=== PATIENT | male | born 1965 | race Caucasian/White ===

== ENCOUNTER 2016-10-01 13:59 | Inpatient (IN) | payer SELFPAY ==
[~2016-10-01] VITALS: Ht 177.8 cm; Wt 88.5 kg
[2016-10-01] MEDS ORDERED: LORazepam 2 MG/ML VIAL ONE (14:05)
[2016-10-01] MEDS ORDERED: SODIUM CHLOR 0.9% 1000 ML INJ 1,000 ML IV ONE (14:05)
[2016-10-01 14:06] VITALS: BP 138/117; PULSE 140; RESP 17; TEMP 97.6; O2SAT 94
[2016-10-01 14:09] VITALS: O2SAT 94
--- NOTE | 2016-10-01 14:14 | PD ---
HPI Chief Complaint: Seizure Time Seen by Provider: 14:05 Travel History International Travel<30 days: No Contact w/Intl Traveler<30days: No Traveled to known affect area: No History of Present Illness HPI 51-year-old male with history of previous stroke and a previous seizure in the past, presents to the ER today brought in by EMS after he had a witnessed seizure at work today, he fell, hit the back of his head, and was fairly agitated and refusing to be brought by EMS to the ER. However, he is quite disoriented and does not would know where he is, first thought he was in [place] , then thought he was in [place], thinks that it is the year 1999. Patient does not know what happened. Modifying Factors: None Associated Signs & Symptoms: Seizure, head injury, altered mental status Risk Factors: History of seizure and stroke PFSH Social History Tobacco Use: No (unknown) Allergies-Medications (Allergen,Severity, Reaction): Coded Allergies: No Known Allergies (Unverified , 10/01/16) Reported Meds & Prescriptions Reported Meds & Active Scripts Active No Active Prescriptions or Reported Medications Review of Systems ROS Limitations: Altered Mental Status Physical Exam Narrative GENERAL: Well-developed anxious appearing middle age white male patient who is awake, alert, but disoriented. SKIN: Focused skin assessment warm/dry. HEAD: Atraumatic. Normocephalic. EYES: Pupils equal and round. No scleral icterus. No injection or drainage. ENT: No nasal bleeding or discharge. Mucous membranes pink and moist. NECK: Trachea midline. No JVD. CARDIOVASCULAR: Regular rate and rhythm. No murmur appreciated. RESPIRATORY: No accessory muscle use. Clear to auscultation. Breath sounds equal bilaterally. GASTROINTESTINAL: Abdomen soft, non-tender, nondistended. Hepatic and splenic margins not palpable. MUSCULOSKELETAL: No obvious deformities. No clubbing. No cyanosis. No edema. NEUROLOGICAL: Awake and alert. No obvious cranial nerve deficits. Motor grossly within normal limits. Normal speech. PSYCHIATRIC: Agitated mood and affect; insight and judgment poor. Data Data Last Documented VS Vital Signs Date Time Temp Pulse Resp B/P Pulse Ox O2 Delivery O2 Flow Rate FiO2 10/01/16 15:22 125 16 156/90 97 Nasal Cannula 4 10/01/16 14:06 97.6 Orders Lorazepam Inj (Ativan Inj) (10/01/16 14:05) Complete Blood Count With Diff (10/01/16 14:05) Alcohol (Ethanol) (10/01/16 14:05) Drug Screen, Random Urine (10/01/16 14:05) Electrocardiogram (10/01/16 ) Ct Brain W/O Iv Contrast(Rout) (10/01/16 ) Blood Glucose (10/01/16 14:05) Ecg Monitoring (10/01/16 14:05) Iv Access Insert/Monitor (10/01/16 14:05) Oximetry (10/01/16 14:05) Comprehensive Metabolic Panel (10/01/16 14:05) Sodium Chlor 0.9% 1000 Ml Inj (Ns 1000 M (10/01/16 14:05) Sodium Chloride 0.9% Flush (Ns Flush) (10/01/16 14:15) Lorazepam Inj (Ativan Inj) (10/01/16 14:15) Lorazepam Inj (Ativan Inj) (10/01/16 14:45) Haloperidol Inj (Haldol Inj) (10/01/16 16:30) Labs Laboratory Tests Test 10/01/16 14:15 White Blood Count 8.7 TH/MM3 Red Blood Count 4.66 MIL/MM3 Hemoglobin 15.1 GM/DL Hematocrit 44.0 % Mean Corpuscular Volume 94.4 FL Mean Corpuscular Hemoglobin 32.4 PG Mean Corpuscular Hemoglobin 34.3 % Concent Red Cell Distribution Width 16.7 % Platelet Count 112 TH/MM3 Mean Platelet Volume 9.2 FL Neutrophils (%) (Auto) 58.1 % Lymphocytes (%) (Auto) 26.4 % Monocytes (%) (Auto) 14.2 % Eosinophils (%) (Auto) 0.3 % Basophils (%) (Auto) 1.0 % Neutrophils # (Auto) 5.1 TH/MM3 Lymphocytes # (Auto) 2.3 TH/MM3 Monocytes # (Auto) 1.2 TH/MM3 Eosinophils # (Auto) 0.0 TH/MM3 Basophils # (Auto) 0.1 TH/MM3 CBC Comment DIFF FINAL Differential Comment Sodium Level 132 MEQ/L Potassium Level 3.6 MEQ/L Chloride Level 97 MEQ/L Carbon Dioxide Level 20.6 MEQ/L Anion Gap 14 MEQ/L Blood Urea Nitrogen 3 MG/DL Creatinine 0.65 MG/DL Estimat Glomerular Filtration 131 ML/MIN Rate Random Glucose 126 MG/DL Calcium Level 8.5 MG/DL Total Bilirubin 0.8 MG/DL Aspartate Amino Transf 181 U/L (AST/SGOT) Alanine Aminotransferase 120 U/L (ALT/SGPT) Alkaline Phosphatase 171 U/L Total Protein 8.1 GM/DL Albumin 2.8 GM/DL Ethyl Alcohol Level 27 MG/DL MDM Medical Decision Making Medical Screen Exam Complete: Yes Emergency Medical Condition: Yes Medical Record Reviewed: Yes Interpretation(s) Laboratory Tests Test 10/01/16 14:15 Platelet Count 112 TH/MM3 (150-450) Monocytes (%) (Auto) 14.2 % (0.0-8.0) Monocytes # (Auto) 1.2 TH/MM3 (0-0.9) Sodium Level 132 MEQ/L (136-145) Chloride Level 97 MEQ/L (98-107) Carbon Dioxide Level 20.6 MEQ/L (21.0-32.0) Blood Urea Nitrogen 3 MG/DL (7-18) Random Glucose 126 MG/DL (74-106) Aspartate Amino Transf 181 U/L (15-37) (AST/SGOT) Alanine Aminotransferase 120 U/L (12-78) (ALT/SGPT) Alkaline Phosphatase 171 U/L (45-117) Albumin 2.8 GM/DL (3.4-5.0) Ethyl Alcohol Level 27 MG/DL (0-5) Differential Diagnosis Seizure, altered mental status, head injuryICH versus concussion versus post ictal versus metabolic issues Narrative Course He appeared quite anxious and tremulous in the ER and due to unknown history of alcohol use and disorientation, there is also concerned of DVTs. Ativan was given in the ER. However, patient is still quite awake and fairly agitated and additional Ativan had to be given because he is attempting to leave. He is too disoriented to make his own decision right now. He tries to get up in the ER and almost falls. I had asked security to watch him. At this point, he is Brewster acted because he is disoriented and does not seem to understand was going on. CAT scan techs have come to try to pick him up to get a CAT scan 3 times in all 3 times he had refused stating that he was going to leave. However, when asked regarding the CAT scan and the CAT scan techs coming to take him to go CAT scan, he states that he does not remember. At this point, my plan would be to admit him for altered mental status, head injury. Case is discussed with Dr. Rosenbaum for admission. There is also significant tachycardia and there is concern for possible DTs. Aggregate critical care time was 30 minutes. Time to perform other separately billable procedures was not included in the critical care time. My time did not include minutes spent treating any other patients simultaneously or on activities that did not directly contribute to the patient's treatment. The services I provided to this patient were to treat and/or prevent clinically significant deterioration that could result in: DTs, status epilepticus, intracranial bleed, I provided critical care services requiring my management, as noted below: Chart data review, documentation time, medication orders and management, vital sign assessments/reviewing monitor data, ordering and reviewing lab tests, ordering and interpreting/reviewing x-rays and diagnostic studies, care of the patient and discussion of the patient with the admitting physicians. Diagnosis Primary Impression: Seizure Additional Impressions: Altered mental status Head injury Admitting Information Admitting Physician Requests: Admit Scripts No Active Prescriptions or Reported Meds Sami Hernandez MD Oct 01, 2016 14:14
[2016-10-01] MEDS ORDERED: LORazepam 2 MG/ML VIAL IVS ONE (14:15)
[2016-10-01] MEDS ORDERED: SODIUM CHLORIDE 0.9% FLUSH 10 ML FLUSH IVF PRN (14:15)
[2016-10-01 14:27] LABS: AUTOMATED NEUTROPHIL # 5.1 TH/MM3 (1.8-7.7); BASOPHIL # 0.1 TH/MM3 (0-0.2); EOSINOPHIL % 0.3 % (0.0-4.0); HEMO FLAGS DIFF FINAL; LYMPH % 26.4 % (9.0-44.0); LYMPHOCYTE # 2.3 TH/MM3 (1.0-4.8); MEAN CELL VOLUME 94.4 FL (80.0-100.0); MEAN CORPUSCULAR HEMOGLOBIN 32.4 PG (27.0-34.0); MEAN CORPUSCULAR HGB CONC 34.3 % (32.0-36.0); MONO % 14.2 % (0.0-8.0); NEUT % 58.1 % (16.0-70.0); PLATELET COUNT 112 TH/MM3 (150-450); RED BLOOD COUNT 4.66 MIL/MM3 (4.50-5.90); RED CELL DISTRIBUTION WIDTH 16.7 % (11.6-17.2); WHITE BLOOD COUNT 8.7 TH/MM3 (4.0-11.0)
[2016-10-01] MEDS ORDERED: LORazepam 2 MG/ML VIAL IV PUSH ONE (14:45)
[2016-10-01 14:51] LABS: ALT (GPT) 120 U/L (12-78)
[2016-10-01 14:54] LABS: ALKALINE PHOSPHATASE 171 U/L (45-117); TOTAL BILIRUBIN ADULT 0.8 MG/DL (0.2-1.0)
[2016-10-01 15:04] LABS: ALCOHOL 27 MG/DL (0-5); ANION GAP 14 MEQ/L (5-15); AST (GOT) 181 U/L (15-37); BICARBONATE 20.6 MEQ/L (21.0-32.0); BLOOD UREA NITROGEN 3 MG/DL (7-18); CHLORIDE 97 MEQ/L (98-107); GLOMERULAR FILTRATION RATE 131 ML/MIN (>89); POTASSIUM 3.6 MEQ/L (3.5-5.1); SODIUM (NA) 132 MEQ/L (136-145)
[2016-10-01 15:22] VITALS: BP 156/90; PULSE 125; RESP 16; O2SAT 97
[2016-10-01] MEDS ORDERED: HALOPERIDOL LACTATE 5 MG/ML AMP IM ONE (16:30)
--- NOTE | 2016-10-01 17:30 | RADRPT ---
EXAM DATE/TIME: 10/01/2016 17:04 [facility] COMPARISON: No previous studies available for comparison. INDICATIONS : Altered mental status. Laceration to back of head. RADIATION DOSE: 37.90 CTDIvol (mGy) MEDICAL HISTORY : Seizures. SURGICAL HISTORY : None. ENCOUNTER: Initial ACUITY: 1 day PAIN SCALE: LOCATION: Bilateral cranial TECHNIQUE: Multiple contiguous axial images were obtained of the head. Using automated exposure control and adj ustment of the mA and/or kV according to patient size, radiation dose was kept as low as reasonably a chievable to obtain optimal diagnostic quality images. DICOM format image data is available electro nically for review and comparison. FINDINGS: CEREBRUM: The ventricles are normal for age. No evidence of midline shift, mass lesion, hemorrhage or acute in farction. No extra-axial fluid collections are seen. POSTERIOR FOSSA: The cerebellum and brainstem are intact. The 4th ventricle is midline. The cerebellopontine angle i s unremarkable. EXTRACRANIAL: The visualized portion of the orbits is intact. Soft tissue hematoma over the left posterior perivert ex region. SKULL: The calvaria is intact. No evidence of skull fracture. CONCLUSION: 1. Left posterior perivertex cephalhematoma. 2. Otherwise negative with no acute intracranial process from trauma or fracture. Tom Torres MD on October 01, 2016 at 17:27 Board Certified Radiologist. This report was verified electronically.
[2016-10-01] MEDS ORDERED: LORazepam 2 MG TAB PO PRN (18:30)
[2016-10-01] MEDS ORDERED: LORazepam 1 MG TAB PO PRN (18:30)
[2016-10-01] MEDS ORDERED: FLUMAZENIL 0.5 MG/5 ML VIAL IV PUSH PRN (18:30)
[2016-10-01] MEDS ORDERED: SODIUM CHLORIDE 0.9% FLUSH 10 ML FLUSH IV FLUSH PRN ×2 (18:30→20:15)
[2016-10-01] MEDS: THIAMINE INJ 500 MG in SODIUM CHLOR 0.9% 250 ML INJ 250 ML IV SCH (19:28)
[2016-10-01 19:34] VITALS: BP 147/87; PULSE 107; RESP 16; O2SAT 96
--- NOTE | 2016-10-01 20:10 | HHI.HP ---
HPI Service [facility] Primary Care Physician No Primary Care Physician Admission Diagnosis seizure/altered mental status/possible DTs/Brewster act Diagnoses: (1) Encephalopathy Diagnosis: Principal (2) Seizure Diagnosis: Principal (3) Alcohol withdrawal Diagnosis: Principal (4) Tremor of both hands Diagnosis: Principal (5) Thrombocytopenia Diagnosis: Principal Travel History International Travel<30 Days: No Contact w/Intl Traveler <30 Da: No Traveled to Known Affected Are: No History of Present Illness This is a 51-year-old male with a PMH of Chronic Upper Extremity Tremors, Alcohol Abuse and Tobacco Abuse who was brought to the ER by EMS after apparent witnessed episode of seizure activity. Per initial report, pt had seizure lasting approx 1-2 min witnessed by friends, +head trauma. On arrival to ER, pt noted to be confused/agitated, oriented to person only and tachycardic w/ HR 140's, thought by ER doc to have Alcohol Withdrawal and started on CIWA protocol. While in ER, pt w/ improved mental status however oriented only to person/place. Stated he wanted to LEAVE AMA, however ER physician felt this was unsafe discharge as pt confused at that time and placed under Brewster Act. On my exam, pt tells me he was at a restaurant w/ friends, went outside to smoke a cigarette, felt lightheaded and turned around to walk back into restaurant when he suddenly "passed out". No h/o similar symptoms per pt. States he drinks "a few beers a day". Reports chronic upper extremity tremors from previous cervical surgery, takes Flexeril w/ minimal relief. No h/o seizure disorder. On arrival, BP 138/117, HR 140, O2 sat 94% on RA, Afebrile. [place] BP 147/87, HR 107. CBC unremarkable except for platelets 112, no previous labs for comparison. Chemistry essentially unremarkable except for mild dehydration. LFTs mildly elevated, no previous labs for comparison. Alcohol 27. CT Head with left posterior perivertex cephalo-hematoma, no acute intracranial process. Review of Systems Except as stated in HPI: all other systems reviewed are Neg ROS: 14 point review of systems otherwise negative. Past Family Social History Past Medical History PMH: Chronic Upper Extremity Tremors, Alcohol Abuse and Tobacco Abuse Past Surgical History PAST SURGICAL HISTORY: Unknown Allergies: Coded Allergies: No Known Allergies (Unverified , 10/01/16) Family History PAST FAMILY HISTORY: Reviewed. No h/o DM or CAD Social History PAST SOCIAL HISTORY: Drinks daily "few beers". Smokes 1ppd. Negative for drugs. Physical Exam Vital Signs Vital Signs Date Time Temp Pulse Resp B/P Pulse Ox O2 Delivery O2 Flow Rate FiO2 10/01/16 19:34 107 16 147/87 96 Room Air 10/01/16 15:22 125 16 156/90 97 Nasal Cannula 4 10/01/16 14:09 94 Room Air 10/01/16 14:09 17 94 Room Air 10/01/16 14:06 97.6 140 17 138/117 94 Physical Exam PE: GENERAL: Middle-aged white male in no acute distress. Baseline tremor bilateral upper extremities, chronic. HEENT: PERRLA, EOMI. No scleral icterus or conjunctival pallor. No lid lag or facial droop. CARDIOVASCULAR: Regular rate and rhythm. No obvious murmurs to auscultation. No chest tenderness to palpation. RESPIRATORY: No obvious rhonchi or wheezing. Clear to auscultation. Breath sounds equal bilaterally. GASTROINTESTINAL: Abdomen soft, non-tender, nondistended. BS normal. MUSCULOSKELETAL: Extremities without clubbing, cyanosis, or edema. No obvious deformities. NEUROLOGICAL: Awake, alert and oriented x4. No focal neurologic deficits. Moving both upper and lower extremities spontaneously. Laboratory Laboratory Tests Test 10/01/16 14:15 White Blood Count 8.7 Red Blood Count 4.66 Hemoglobin 15.1 Hematocrit 44.0 Mean Corpuscular Volume 94.4 Mean Corpuscular Hemoglobin 32.4 Mean Corpuscular Hemoglobin 34.3 Concent Red Cell Distribution Width 16.7 Platelet Count 112 Mean Platelet Volume 9.2 Neutrophils (%) (Auto) 58.1 Lymphocytes (%) (Auto) 26.4 Monocytes (%) (Auto) 14.2 Eosinophils (%) (Auto) 0.3 Basophils (%) (Auto) 1.0 Neutrophils # (Auto) 5.1 Lymphocytes # (Auto) 2.3 Monocytes # (Auto) 1.2 Eosinophils # (Auto) 0.0 Basophils # (Auto) 0.1 CBC Comment DIFF FINAL Differential Comment Sodium Level 132 Potassium Level 3.6 Chloride Level 97 Carbon Dioxide Level 20.6 Anion Gap 14 Blood Urea Nitrogen 3 Creatinine 0.65 Estimat Glomerular Filtration 131 Rate Random Glucose 126 Calcium Level 8.5 Total Bilirubin 0.8 Aspartate Amino Transf 181 (AST/SGOT) Alanine Aminotransferase 120 (ALT/SGPT) Alkaline Phosphatase 171 Total Protein 8.1 Albumin 2.8 Ethyl Alcohol Level 27 Result Diagram: 10/01/16 1415 10/01/16 1415 Assessment and Plan Problem List: (1) Encephalopathy ICD Code: G93.40 Status: Acute (2) Seizure ICD Code: R56.9 Status: Acute (3) Alcohol withdrawal ICD Code: F10.239 Status: Acute (4) Tremor of both hands ICD Code: R25.1 Status: Acute (5) Thrombocytopenia ICD Code: D69.6 Status: Acute Assessment and Plan A/P: 1. Encephalopathy: Likely secondary to seizure w/ post-ictal period and confusion, initially oriented to person only. CT Head w/ posterior hematoma, no acute intracranial findings, images reviewed by me. Placed under Brewster Act by ER physician as pt confused and wanting to Leave AMA. Currently oriented to person, place and time. 2. Seizure: per EMS, witnessed seizure by friends, pt denies h/o seizure. CT Head as above. Alcohol 27. U/a and Urine Drug Screen pending. Consult Neurology as needed. 3. Alcohol Withdrawal: Drinks daily, reports "few beers", +tachycardia, Alcohol 27, continue w/ CIWA, Seizure Precautions, Thiamine/Folate/MVT replacement. 4. Tremor: Bilateral Upper Extremities. Chronic, at baseline. 5. Thrombocytopenia: Platelets 112, no previous labs for comparison, no active bleeding. Will monitor, repeat labs in am. 6. Tobacco Abuse: Pt counselled. NicoDerm prn if needed. 7. DVT Prophylaxis: SCD/Teds. 8. Social work for d/c planning as needed. 9. Case discussed w/ ER physician at length. Physician Certification 2 Midnight Certification Type: Admission for Inpatient Services Order for Inpatient Services The services are ordered in accordance with Medicare regulations or non- Medicare payer requirements, as applicable. In the case of services not specified as inpatient-only, they are appropriately provided as inpatient services in accordance with the 2-midnight benchmark. Estimated LOS (days): 2 days is the estimated time the patient will need to remain in the hospital, assuming treatment plan goals are met and no additional complications. Post-Hospital Plan: Not yet determined Mckayla Perez MD Oct 01, 2016 20:10
[2016-10-01] MEDS ORDERED: SENNOSIDES 8.6 MG TAB PO PRN (20:15)
[2016-10-01] MEDS ORDERED: LACTULOSE SYRUP 20 GM/30 ML CUP PO PRN (20:15)
[2016-10-01] MEDS ORDERED: ONDANSETRON HCL 4 MG/2 ML VIAL IVP PRN (20:15)
[2016-10-01] MEDS ORDERED: ACETAMINOPHEN 325 MG TAB PO PRN (20:15)
[2016-10-01] MEDS ORDERED: MAGNESIUM HYDROXIDE SUSP 30 ML CUP PO PRN (20:15)
[2016-10-01] MEDS ORDERED: BISACODYL 10 MG SUPP RECTAL PRN (20:15)
[2016-10-01] MEDS: SODIUM CHLORIDE 0.9% FLUSH 10 ML FLUSH IV FLUSH SCH (21:00)
[2016-10-01] MEDS: DOCUSATE SODIUM 50 MG/SENNA 8.6 MG TAB PO SCH (21:00)
[2016-10-01] MEDS ORDERED: SODIUM CHLORIDE 0.9% FLUSH 10 ML FLUSH IV FLUSH SCH (21:00)
[2016-10-01 22:00] VITALS: BP 157/95; PULSE 145; RESP 22; TEMP 100.6; O2SAT 94
[2016-10-01] MEDS: SODIUM CHLOR 0.9% 1000 ML INJ 1,000 ML IV SCH (23:09)
[2016-10-02 00:25] LABS: BLOOD, URINE TRACE (NEG); COMMENT (UR) CULT NOT INDICATED; CULTURE IF INDICATED CULT NOT INDICATED; GLUCOSE,URINE NEG (NEG); KETONE, URINE 10 mg/dL (NEG); NITRITE,URINE NEG (NEG); PH, URINE 7.5 (5.0-8.5); URINE COLOR YELLOW (YELLW/STRAW)
[2016-10-02] MEDS: THIAMINE INJ 500 MG in SODIUM CHLOR 0.9% 250 ML INJ 250 ML IV SCH ×3 (02:54→18:30)
[2016-10-02 04:41] VITALS: BP 154/124; PULSE 121; RESP 22; TEMP 99.1; O2SAT 95
[2016-10-02] MEDS: SODIUM CHLOR 0.9% 1000 ML INJ 1,000 ML IV SCH (06:14)
[2016-10-02 07:45] LABS: AUTOMATED NEUTROPHIL # 4.5 TH/MM3 (1.8-7.7); BASOPHIL % 0.5 % (0.0-2.0); EOSINOPHIL % 0.6 % (0.0-4.0); HEMATOCRIT 44.1 % (39.0-51.0); LYMPH % 14.5 % (9.0-44.0); MEAN CELL VOLUME 94.9 FL (80.0-100.0); MEAN CORPUSCULAR HEMOGLOBIN 32.3 PG (27.0-34.0); MONO % 17.7 % (0.0-8.0); NEUT % 66.7 % (16.0-70.0); PLATELET COUNT 91 TH/MM3 (150-450); RED BLOOD COUNT 4.65 MIL/MM3 (4.50-5.90); RED CELL DISTRIBUTION WIDTH 16.4 % (11.6-17.2); WHITE BLOOD COUNT 6.8 TH/MM3 (4.0-11.0)
[2016-10-02 07:52] LABS: ANION GAP 9 MEQ/L (5-15); AST (GOT) 157 U/L (15-37); BICARBONATE 25.6 MEQ/L (21.0-32.0); BLOOD UREA NITROGEN 5 MG/DL (7-18); CHLORIDE 100 MEQ/L (98-107); GLOMERULAR FILTRATION RATE 143 ML/MIN (>89); HEMO FLAGS AUTO DIFF; POTASSIUM 3.2 MEQ/L (3.5-5.1); SODIUM (NA) 135 MEQ/L (136-145)
[2016-10-02 07:53] LABS: ALT (GPT) 107 U/L (12-78)
[2016-10-02 07:55] LABS: ALKALINE PHOSPHATASE 168 U/L (45-117); TOTAL BILIRUBIN ADULT 1.1 MG/DL (0.2-1.0)
[2016-10-02 08:00] VITALS: BP 146/92; PULSE 119; RESP 19; TEMP 99.3; O2SAT 95
[2016-10-02] MEDS: SODIUM CHLORIDE 0.9% FLUSH 10 ML FLUSH IV FLUSH SCH ×2 (09:00→23:28)
[2016-10-02] MEDS ORDERED: POTASSIUM CHLORIDE 20 MEQ CONTROLLED RELEASE TAB PO ONE (09:30)
[2016-10-02 09:38] LABS: MAGNESIUM 1.9 MG/DL (1.5-2.5)
[2016-10-02 09:53] LABS: PLATELET ESTIMATE SMEAR LOW (NORMAL); PLATELET MORPHOLOGY NORMAL (NORMAL); SCAN/DIFF AUTO DIFF CONFIRMED
[2016-10-02] MEDS: cloNIDine HCL 0.1 MG TAB PO SCH ×2 (10:09→23:26)
[2016-10-02] MEDS: FOLIC ACID 1 MG TAB PO SCH (10:09)
[2016-10-02] MEDS: DOCUSATE SODIUM 50 MG/SENNA 8.6 MG TAB PO SCH ×2 (10:09→21:00)
[2016-10-02] MEDS: MULTIVITAMINS/MINERALS THERAPEUTIC TAB PO SCH (10:10)
[2016-10-02 10:16] LABS: CKMB 3.8 NG/ML (0.5-3.6)
[2016-10-02] MEDS ORDERED: CYCL1TAB29 PO (10:24)
[2016-10-02 12:00] VITALS: BP 137/100; PULSE 125; RESP 19; TEMP 99.2; O2SAT 98
--- NOTE | 2016-10-02 12:17 | PD.PSY.CON ---
Provisional Diagnosis Admission Date Oct 01, 2016 at 18:21 History of Present Illness Service Psychiatry Consult Requested By Reason for Consult Psychotic behavior Primary Care Physician No Primary Care Physician HPI The patient is a 51-year-old man, single, domiciled, unemployed, without any previous psychiatric history, no previous suicidal attempts, no previous psychiatric hospitalizations, alcohol use disorder, with past medical history of Chronic Upper Extremity Tremors, who was brought to the ER by EMS after apparent witnessed episode of seizure activity. Per initial report, pt had seizure lasting approx 1-2 min witnessed by friends, +head trauma. On arrival to ER, pt noted to be confused/agitated, oriented to person only and tachycardic w/ HR 140's, thought by ER doc to have Alcohol Withdrawal and started on CIWA protocol. While in ER, pt w/ improved mental status however oriented only to person/place. Stated he wanted to LEAVE AMA, however ER physician felt this was unsafe discharge as pt confused at that time and placed under Brewster Act. On my exam, pt tells me he was at a restaurant w/ friends, went outside to smoke a cigarette, felt lightheaded and turned around to walk back into restaurant when he suddenly "passed out". No h/o similar symptoms per pt. States he drinks "a few beers a day". Reports chronic upper extremity tremors from previous cervical surgery, takes Flexeril w/ minimal relief. No h/ o seizure disorder. On psychiatric evaluation today patient is calm, cooperative, pleasant. Patient requesting to please leave the Brewster act so he can get his phone back. Patient says that he doesn't really understand what happened yesterday. He was actually going to a beach with friends. He doesn't remember exactly the details his fall, he feels that he may have seizures, even though he never had this before. Patient denies history of alcoholism. He says that he takes alcohol 2 or 3 times per week, he never had withdrawal in the past. Patient denies depressive symptoms, he denies anxiety, he denies anhedonia, he denies hopelessness, denies helplessness, he denies suicidal and homicidal ideation. He denies visual and auditory hallucinations. Patient is organized, logical, coherent and relevant. Oriented 3, a little be confused at times, but redirectable. He denies the use of illegal drugs. No tremors, no withdrawal observed. Review of Systems Constitutional: DENIES: Diaphoretic episodes, Fatigue, Fever, Weight gain, Weight loss, Chills, Dizziness, Change in appetite, Night Sweats Endocrine: DENIES: Heat/cold intolerance, Polydipsia, Polyuria, Polyphagia Eyes: DENIES: Blurred vision, Diplopia, Eye inflammation, Eye pain, Vision loss , Photosensitivity, Double Vision Ears, nose, mouth, throat: DENIES: Tinnitus, Hearing loss, Vertigo, Nasal discharge, Oral lesions, Throat pain, Hoarseness, Ear Pain, Running Nose, Epistaxis, Sinus Pain, Toothache, Odynophagia Gastrointestinal: DENIES: Abdominal pain, Black stools, Bloody stools, Constipation, Diarrhea, Nausea, Vomiting, Difficulty Swallowing, Anorexia Musculoskeletal: DENIES: Joint pain, Muscle aches, Stiffness, Joint Swelling, Back pain, Neck pain Integumentary: DENIES: Abnormal pigmentation, Nail changes, Pruritus, Rash Immunologic/allergic: DENIES: Eczema, Urticaria Neurologic: COMPLAINS OF: Seizures Psychiatric: COMPLAINS OF: Confusion Past Family Social History Coded Allergies: No Known Allergies (Unverified , 10/01/16) Reported Medications Cyclobenzaprine (Flexeril)10 Mg Tab10 Mg PO TID Ref 0 10/02/16 Current Medications Medications (Trade) Dose Ordered Sig/Mily Route Start Time Stop Time Status Last Admin (Romazicon Inj) 0.2 mg Q1M PRN IV PUSH 10/01/16 18:30 (Ativan) 1 mg Q4H PRN PO 10/01/16 18:30 (Ativan Inj) 1 mg Q4H PRN IV PUSH 10/01/16 18:30 (Ativan) 2 mg Q2H PRN PO 10/01/16 18:30 (Ativan Inj) 2 mg Q2H PRN IV PUSH 10/01/16 18:30 (Ativan Inj) 2 mg Q1H PRN IV PUSH 10/01/16 18:30 Lorazepam 2 mg 2 mg Q15M PRN IV PUSH 10/01/16 18:30 Thiamine HCl 500 mg/Sodium Chloride 255 ml @ 62.5 mls/hr Q8H IV 10/01/16 18:30 10/03/16 18:29 10/02/16 10:19 Thiamine HCl 500 mg/Sodium Chloride 505 ml @ 62.5 mls/hr Q24H IV 10/03/16 18:30 10/08/16 18:29 (NS 1000 ml Inj) 1,000 ml @ 100 mls/hr Q10H IV 10/01/16 21:00 10/01/16 23:09 (NS Flush) 2 ml UNSCH PRN IV FLUSH 10/01/16 20:15 (NS Flush) 2 ml BID IV FLUSH 10/01/16 21:00 (Zofran Inj) 4 mg Q6H PRN IVP 10/01/16 20:15 (Tylenol) 650 mg Q6H PRN PO 10/01/16 20:15 (Roxicodone) 10 mg Q4H PRN PO 10/01/16 20:15 (Roxicodone) 5 mg Q4H PRN PO 10/01/16 20:15 (Lisandra-Colace) 1 tab BID PO 10/01/16 21:00 10/02/16 10:09 (Milk Of Magnesia Liq) 30 ml Q12H PRN PO 10/01/16 20:15 (Senokot) 17.2 mg Q12H PRN PO 10/01/16 20:15 (Dulcolax Supp) 10 mg DAILY PRN RECTAL 10/01/16 20:15 (Lactulose Liq) 30 ml DAILY PRN PO 10/01/16 20:15 (Folate) 1 mg DAILY PO 10/02/16 09:00 10/07/16 08:59 10/02/16 10:09 (Theragran M Tab) 1 tab DAILY PO 10/02/16 09:00 10/07/16 08:59 10/02/16 10:10 (Vitamin B1) 100 mg DAILY PO 10/09/16 09:00 (Catapres) 0.1 mg Q12HR PO 10/02/16 09:00 10/02/16 10:09 (Catapres) 0.1 mg Q6H PRN PO 10/02/16 08:45 Social History Patient was born in [facility], he is single, employed, Patient's Strengths (min. 2) Verbal comucation, no cigarette history Physical Exam At this moment the patient doesn't have any withdrawal, no tremors, no EPS, no getting disturbances, no psychomotor agitation or retardation. Vital Signs Vital Signs Date Time Temp Pulse Resp B/P Pulse Ox O2 Delivery O2 Flow Rate FiO2 10/02/16 08:00 99.3 119 19 146/92 95 10/01/16 23:46 Room Air 10/01/16 15:22 4 I/O 10/01/16 10/01/16 10/02/16 08:00 16:00 00:00 Intake Total 360 ml Output Total 300 ml Balance 60 ml Lab Results Laboratory Tests Test 10/01/16 14:15 White Blood Count 8.7 Red Blood Count 4.66 Hemoglobin 15.1 Hematocrit 44.0 Mean Corpuscular Volume 94.4 Mean Corpuscular Hemoglobin 32.4 Mean Corpuscular Hemoglobin 34.3 Concent Red Cell Distribution Width 16.7 Platelet Count 112 Mean Platelet Volume 9.2 Neutrophils (%) (Auto) 58.1 Lymphocytes (%) (Auto) 26.4 Monocytes (%) (Auto) 14.2 Eosinophils (%) (Auto) 0.3 Basophils (%) (Auto) 1.0 Neutrophils # (Auto) 5.1 Lymphocytes # (Auto) 2.3 Monocytes # (Auto) 1.2 Eosinophils # (Auto) 0.0 Basophils # (Auto) 0.1 CBC Comment DIFF FINAL Differential Comment Sodium Level 132 Potassium Level 3.6 Chloride Level 97 Carbon Dioxide Level 20.6 Anion Gap 14 Blood Urea Nitrogen 3 Creatinine 0.65 Estimat Glomerular Filtration 131 Rate Random Glucose 126 Calcium Level 8.5 Total Bilirubin 0.8 Aspartate Amino Transf 181 (AST/SGOT) Alanine Aminotransferase 120 (ALT/SGPT) Alkaline Phosphatase 171 Total Protein 8.1 Albumin 2.8 Ethyl Alcohol Level 27 Result Diagram: 10/01/16 1415 10/01/16 1415 Mental Status Examination Appearance man, age appearing, overweight, [facility], calm and cooperative Speech: Unremarkable Orientation: x3 Memory: Unremarkable Thought Process: Logical Thought Content: Unremarkable Language Appropriate grammar, wording and fluent and spontaneous language Fund of Knowledge Adequate for his level of education Hallucination Type: None Suicidal Ideation: No Previous Suicide Attempts: No Homicidal Ideation: No Insight: Good Affect: Good Mood: Appropriate Motor Activity: Normal gait Assessment & Plan Problem List: (1) Alcohol abuse with alcohol-induced mood disorder Assessment & Plan: At the moment of this evaluation the patient does not present any acute, concerning or relevant psychiatric symptom that requires any immediate psychiatric intervention. Patient denies depressive symptoms he denies anxiety, he denies psychosis. He denies suicidal and homicidal ideation. He denies visual and auditory hallucinations. He is a little bit confused, but mostly oriented 3, logical, coherent, relevant. There is no indication of psychiatric admission at this moment. Continue CIWA. Support, motivation and psychoeducation provided. Brewster act will be lifted. ICD Code: F10.14 Assessment & Plan Estimated LOS: Apolinar Mac MD Oct 02, 2016 12:17
--- NOTE | 2016-10-02 12:20 | MG ---
cc: ROX ACOSTA M.D. Lab No: Date: 10/02/2016 Age: 51 Sex: M Race: REQUESTING: Dr. Perez. HISTORY: An EEG was obtained on this 51-year-old patient being evaluated for seizures. DESCRIPTION OF THE RECORDING: The study shows a lot of movement artifact but there are background alpha rhythms posteriorly. There is some beta activity. Overall, the study is limited but no abnormality is encountered. Photic stimulation showed some probable driving response bilaterally. INTERPRETATION: Normal somewhat limited EEG study because of the excessive artifact. MD EARLENE Ordoñez/NICK /11:55 AM /12:13 PM
--- NOTE | 2016-10-02 12:32 | MB ---
cc: ROX ACOSTA M.D. DATE OF CONSULTATION: 10/02/2016 REASON FOR CONSULTATION: He is a 51-year-old man seen in neurological consultation. He was Brewster acted last evening. He came in the afternoon with was seizures, apparently had weakness, seizures, fell, hit the back of his head and he was agitated and refusing medical care. He seems to be substantially improved this morning as when awakened and he was agitated but appears oriented, remembers something about the seizure and does not remember everything that happened. He tells me is from [place] and was on his way to [place]. He denies a history of seizures in the past. He took flexor only. He admits alcohol in a limited manner. He denies drugs. NEUROLOGIC EXAMINATION Showed restlessness, some agitation and fairly severe trembling of his upper extremities. Reflexes were relatively brisk throughout, possibly left more than right. He has old injury left ankle and right mid to third distal calf region. Ocular movements with some nystagmus, visual silva full. ASSESSMENT Suspect alcohol withdrawal syndrome with tremulousness and seizures and his disorientation as improved substantially. He had major difficulty with gait and will need to have physical therapy for ambulation. MEDICATIONS Medications include 1. Thiamine. 2. Vitamins. 3. Ativan 4. He was given some Haldol as well. He has had an EEG and MRI brain. I will follow the neurological course. Thank you for asking us to assist in his care Rox Acosta MD [facility]/ /11:30 AM /12:22 PM
--- NOTE | 2016-10-02 14:31 | HHI.PR ---
Subjective Remarks Follow-up Seizure. No recurrence. He is oriented 3 nonfocal. Denies headache and dizziness. No fever or chills. Objective Vitals Vital Signs Date Time Temp Pulse Resp B/P Pulse Ox O2 Delivery O2 Flow Rate FiO2 10/02/16 08:00 95 Room Air 10/02/16 08:00 99.3 119 19 146/92 95 10/02/16 04:41 99.1 121 22 154/124 95 10/01/16 23:46 Room Air 10/01/16 22:00 100.6 145 22 157/95 94 10/01/16 19:34 107 16 147/87 96 Room Air 10/01/16 15:22 125 16 156/90 97 Nasal Cannula 4 I/O 10/01/16 10/01/16 10/01/16 10/02/16 10/02/16 10/02/16 07:00 15:00 23:00 07:00 15:00 23:00 Intake Total 360 ml 726 ml Output Total 300 ml 1125 ml Balance 60 ml -399 ml Intake Oral 360 ml 240 ml IV Total 486 ml Output Urine Total 300 ml 1125 ml Result Diagram: 10/02/16 0700 10/02/16 0700 Imaging Last Impressions Head CT 10/01/16 0000 Signed Impressions: Service Date/Time: Saturday, October 01, 2016 17:04 - CONCLUSION: 1. Left posterior perivertex cephalhematoma. 2. Otherwise negative with no acute intracranial process from trauma or fracture. Tom Torres MD Objective Remarks GENERAL: Well-developed, well-nourished in no distress SKIN: Warm and dry. CARDIOVASCULAR: Regular rate and rhythm. RESPIRATORY: No accessory muscle use. Clear to auscultation. Breath sounds equal bilaterally. GASTROINTESTINAL: Abdomen soft, non-tender, nondistended. MUSCULOSKELETAL: Extremities without clubbing, cyanosis, or edema. No obvious deformities. NEUROLOGICAL: Awake and alert. No obvious cranial nerve deficits. Motor grossly within normal limits. Five out of 5 muscle strength in the arms and legs. Normal speech. Tremors noted PSYCHIATRIC: Appropriate mood and affect; insight and judgment normal. Procedures none A/P Problem List: (1) Encephalopathy ICD Code: G93.40 Status: Acute (2) Seizure ICD Code: R56.9 Status: Acute (3) Alcohol withdrawal ICD Code: F10.239 Status: Acute (4) Tremor of both hands ICD Code: R25.1 Status: Acute (5) Thrombocytopenia ICD Code: D69.6 Status: Acute Assessment and Plan 1. Toxic encephalopathy: Likely secondary to seizure w/ post-ictal period and confusion, initially oriented to person only. CT Head w/ posterior hematoma, no acute intracranial findings, images reviewed by me. Placed under Brewster Act by ER physician as pt confused and wanting to Leave AMA. Currently oriented to person, place and time. Resolved. Psychiatry has limited Brewster act 2. Alcohol withdrawal seizure: per EMS, witnessed seizure by friends, pt denies h/o seizure. CT Head as above. EEG negative. Alcohol 27. U/a and Urine Drug Screen positive for marijuana and alcohol. Stable. Follow-up MRI of the brain. Seizure precautions. No driving for 6 months, carrying young kids, climbing heights and swim alone 3. Alcohol Withdrawal: Drinks daily, reports "few beers", +tachycardia, Alcohol 27, continue w/ CIWA, Seizure Precautions, Thiamine/Folate/MVT replacement. Counseled. 4. Tremor: Bilateral Upper Extremities. Chronic, at baseline. Restart Flexeril 5. Thrombocytopenia: Platelets 112, no previous labs for comparison, no active bleeding. Will monitor, repeat labs in am. 6. Transaminitis secondary to alcohol. We'll monitor 7. Tobacco Abuse: Pt counselled. NicoDerm prn if needed. 8. DVT Prophylaxis: SCD/Teds. Discharge Planning Discharge when cleared by neurology Jose Tanner MD Oct 02, 2016 14:31
[2016-10-02] MEDS ORDERED: CHLO25CA9 PO (14:36)
[2016-10-02] MEDS ORDERED: GNP100TA3 PO (14:36)
--- NOTE | 2016-10-02 14:37 | HHI.DCPOC ---
Discharge Care Plan Diagnosis: (1) Seizure (2) Encephalopathy Your Health Problems Are: Difficulty with ADL Exercise Tolerance Goals to Promote Your Health * To prevent worsening of your condition and complications * To maintain your health at the optimal level Directions to Meet Your Goals Take your medications as prescribed Follow your dietary instruction Follow activity as directed Keep your appointments as scheduled Take your immunizations and boosters as scheduled If your symptoms worsen call your PCP, if no PCP go to Urgent Care Center or Emergency Room Smoking is Dangerous to Your Health. Avoid second hand smoke Call the 24-hour hour crisis hotline for domestic abuse at Jose Tanner MD Oct 02, 2016 14:36
[2016-10-02] MEDS ORDERED: LORazepam 2 MG/ML VIAL IV PUSH ONE (14:45)
[2016-10-02 16:00] VITALS: BP 142/98; PULSE 123; RESP 18; TEMP 100.1; O2SAT 96
--- NOTE | 2016-10-02 17:09 | EKG ---
Date Performed: 10/01/2016 Time Performed: 14:17:06 PTAGE: 51 years EKG: SINUS TACHYCARDIA ABNORMAL RHYTHM ECG NO PREVIOUS TRACING DOCTOR: Srikanth Garcia Interpretating Date/Time 10/02/2016 17:05:38
[2016-10-02] MEDS: CYCLOBENZAPRINE HCL 10 MG TAB PO SCH (18:00)
[2016-10-02 20:00] VITALS: BP 158/83; PULSE 110; RESP 20; TEMP 100.3; O2SAT 98
[2016-10-03] VITALS (7 sets, daily range): BP systolic 113–155; BP diastolic 73–97; PULSE 81–168; RESP 16–29; TEMP 98.6–100.1; O2SAT 95–99
[2016-10-03] MEDS: THIAMINE INJ 500 MG in SODIUM CHLOR 0.9% 250 ML INJ 250 ML IV SCH ×2 (02:39→10:21)
[2016-10-03] MEDS: LORazepam 2 MG/ML VIAL IV PUSH PRN ×10 (04:03→23:55)
[2016-10-03] MEDS ORDERED: DEXTROSE 50% IN WATER 50 ML SYRINGE IV ONE (05:30)
[2016-10-03] MEDS: HALOPERIDOL LACTATE 5 MG/ML AMP IM PRN (07:09)
[2016-10-03] MEDS ORDERED: MIDAZOLAM HCL 5 MG/ML VIAL (1 ML) ONE (08:13)
[2016-10-03] MEDS ORDERED: MAGNESIUM SULFATE INJ 2 GM in SODIUM CHLORIDE 0.9% INJ 96 ML IV PRN (08:15)
[2016-10-03] MEDS ORDERED: LORazepam 2 MG/ML VIAL IV PUSH PRN (08:15)
[2016-10-03] MEDS ORDERED: POTASSIUM PHOSPHATE INJ 30 MMOL in SODIUM CHLOR 0.9% 250 ML INJ 250 ML IV PRN (08:15)
[2016-10-03] MEDS ORDERED: POTASSIUM CHLOR 40 MEQ PREMIX 100 ML IV PRN ×2 (08:15)
[2016-10-03] MEDS ORDERED: SODIUM PHOSPHATE INJ 30 MMOL in SODIUM CHLOR 0.9% 250 ML INJ 240 ML IV PRN (08:15)
[2016-10-03] MEDS ORDERED: MAGNESIUM SULFATE INJ 4 GM in SODIUM CHLORIDE 0.9% INJ 92 ML IV PRN (08:15)
[2016-10-03] MEDS ORDERED: MAGNESIUM OXIDE 400 MG TAB PO PRN (08:15)
[2016-10-03] MEDS ORDERED: POTASSIUM CHLORIDE 25 MEQ EFFERVESCENT TAB PO PRN (08:15)
[2016-10-03] MEDS ORDERED: POTASSIUM CHLOR 20 MEQ PREMIX 100 ML IV PRN (08:15)
[2016-10-03] MEDS ORDERED: POTASSIUM PHOSPHATE MONOBASIC 500 MG TAB PO PRN (08:15)
[2016-10-03] MEDS ORDERED: POTASSIUM PHOSPHATE MONOBASIC 500 MG TAB PO/TUBE PRN (08:15)
[2016-10-03] MEDS ORDERED: DEXMEDETOMIDINE INJ 200 MCG in SODIUM CHLORIDE 0.9% INJ 50 ML IV SCH (08:30)
--- NOTE | 2016-10-03 08:39 | PD.CONS ---
HPI Service Critical Care Medicine Consult Requested By [facility] Reason for Consult Seizures, severe agitation Primary Care Physician No Primary Care Physician History of Present Illness 51 y/o man fell and hit his head 36 hours ago. Had seizure felt to be related to ETOH withdrawal after evaluation by Neurology [facility] Psychiat[facility] Services. CT head negative aside from scalp hematoma. Arrived in [facility] with severe agitation and tremors. Became calm after iv versed but remains tachycardic, tachypneic, and hypertensive. Review of Systems ROS Unobtainable, no family. Past Family Social History Allergies: Coded Allergies: No Known Allergies (Unverified , 10/01/16) Past Medical History Social History Tobacco Use: No (unknown) Allergies-Medications Allergies-Medications (Allergen,Severity, Reaction): Coded Allergies: No Known Allergies (Unverified , 10/01/16) Reported Meds & Prescriptions Reported Meds & Active Scripts Active No Active Prescriptions or Reported Medications Physical Exam Vital Signs Vital Signs Date Time Temp Pulse Resp B/P Pulse Ox O2 Delivery O2 Flow Rate FiO2 10/03/16 04:00 100.0 117 16 128/97 97 10/03/16 02:21 Room Air 10/03/16 00:03 100.1 127 17 138/93 95 10/02/16 20:00 100.3 110 20 158/83 98 10/02/16 16:00 100.1 123 18 142/98 96 10/02/16 12:00 99.2 125 19 137/100 98 Physical Exam P 172, BP 224/103, R 30, sats 88% Head: Scalp hematoma. Neck: Supple, airway widely patent. Lungs: Clear, tachypneic. Heart: Tachycardic, regular. No JVD. Abdomen: Voluntary guarding, soft otherwise. Extremities: Warm, flushed. Neuro: Severe tremors upper limbs. Moves 4 limbs with 5/5 strength. Tracks with eyes. Result Diagram: 10/02/16 0700 10/02/16 0700 Assessment and Plan Assessment and Plan Assessment: 1. Severe agitation requiring a sedation protocol. 2. Probable ETOH withdrawal. 3. Seizures, generalized. 4. Minor head injury from fall. 5. Scalp hematoma. Plan: 1. Ativan q15m prn. 2. Precedex gtt after bolus. 3. Neuro checks. 4. Vitamins. 5. NPO. 6. Airway precautions. 7. Keep Mag > 2. Overall impression: Critically ill with seizures and severe agitation. He requires continuous drug manipulation to prevent ongoing seizures and a formal sedation protocol. Critical Care 42 mins Geoffrey Gil MD Oct 03, 2016 08:39
[2016-10-03] MEDS: DOCUSATE SODIUM 50 MG/SENNA 8.6 MG TAB PO SCH ×2 (09:00→19:50)
[2016-10-03] MEDS: cloNIDine HCL 0.1 MG TAB PO SCH ×2 (09:00→19:50)
[2016-10-03] MEDS: SODIUM CHLORIDE 0.9% FLUSH 10 ML FLUSH IV FLUSH SCH ×2 (09:00→19:50)
[2016-10-03] MEDS: MULTIVITAMINS/MINERALS THERAPEUTIC TAB PO SCH (09:00)
[2016-10-03] MEDS: CYCLOBENZAPRINE HCL 10 MG TAB PO SCH ×4 (09:00→19:08)
[2016-10-03] MEDS: FOLIC ACID 1 MG TAB PO SCH (09:00)
[2016-10-03] MEDS: DEXMEDETOMIDINE INJ 1,000 MCG in SODIUM CHLOR 0.9% 250 ML INJ 240 ML IV SCH (09:49)
--- NOTE | 2016-10-03 10:39 | HHI.PR ---
Subjective Remarks Follow-up seizure. Events noted. Discussed with floor nurse and was urgently transferred to ICU secondary to DTs. Currently sedated after receiving 4 mg IV Ativan and Precedex bolus. Discussed with critical care medicine and RN. Objective Vitals Vital Signs Date Time Temp Pulse Resp B/P Pulse Ox O2 Delivery O2 Flow Rate FiO2 10/03/16 08:00 98 Nasal Cannula 2.00 10/03/16 04:00 100.0 117 16 128/97 97 10/03/16 02:21 Room Air 10/03/16 00:03 100.1 127 17 138/93 95 10/02/16 20:00 100.3 110 20 158/83 98 10/02/16 16:00 100.1 123 18 142/98 96 10/02/16 12:00 99.2 125 19 137/100 98 I/O 10/02/16 10/02/16 10/02/16 10/03/16 10/03/16 10/03/16 07:00 15:00 23:00 07:00 15:00 23:00 Intake Total 726 ml 1320 ml 360 ml Output Total 1125 ml 150 ml Balance -399 ml 1320 ml 210 ml Intake Oral 240 ml 1320 ml 360 ml IV Total 486 ml Output Urine Total 1125 ml 150 ml # Voids 5 2 # Bowel Movements 2 Result Diagram: 10/02/16 0700 10/02/16 0700 Imaging Last Impressions Head CT 10/01/16 0000 Signed Impressions: Service Date/Time: Saturday, October 01, 2016 17:04 - CONCLUSION: 1. Left posterior perivertex cephalhematoma. 2. Otherwise negative with no acute intracranial process from trauma or fracture. Tom Torres MD Objective Remarks GENERAL: Well-developed, well-nourished currently sedated protecting airway. SKIN: Warm and dry. CARDIOVASCULAR: Regular rate and rhythm. RESPIRATORY: No accessory muscle use. Clear to auscultation. Breath sounds equal bilaterally. GASTROINTESTINAL: Abdomen soft, nondistended. MUSCULOSKELETAL: Extremities without clubbing, cyanosis, or edema. No obvious deformities. NEUROLOGICAL: Sedated No obvious cranial nerve deficits. Withdraws from painful stimuli Procedures none A/P Problem List: (1) Encephalopathy ICD Code: G93.40 Status: Acute (2) Seizure ICD Code: R56.9 Status: Acute (3) Alcohol withdrawal ICD Code: F10.239 Status: Acute (4) Tremor of both hands ICD Code: R25.1 Status: Acute (5) Thrombocytopenia ICD Code: D69.6 Status: Acute Assessment and Plan Delirium tremens. Patient high risk of decompensation we'll keep in ICU for now continue supportive care with benzodiazepines and IV fluids. Continue CIWA protocol and thiamine/folate/multivitamins Toxic encephalopathy: Head CT without acute findings. MRI has been ordered. Neurochecks Alcohol withdrawal seizure: per EMS, witnessed seizure by friends, pt denies h/ o seizure. CT Head as above. EEG negative. Alcohol 27. U/a and Urine Drug Screen positive for marijuana and alcohol. Stable. Follow-up MRI of the brain. Seizure precautions. No driving for 6 months, carrying young kids, climbing heights and swim alone Thrombocytopenia likely from alcohol. Monitor Transaminitis secondary to alcohol. We'll monitor Tobacco Abuse: Pt counselled. NicoDerm prn if needed. DVT Prophylaxis: SCD/Teds. Hold pharmacological prophylaxis because of worsening thrombocytopenia Discharge Planning He is critically ill Jose Tanner MD Oct 03, 2016 10:38
--- NOTE | 2016-10-03 12:23 | HHI.PR ---
Review/Management Daily Summary 10/03 seen before transferred to the unit very agitated 4 point restraint needed would be calm for few seconds upon staff coaching typical delirium tremens, iv fluids, sedation and supportive care Subjective Subjective Comments very agitated this am Active Medications Current Medications Medications (Trade) Dose Ordered Sig/Mily Route Start Time Stop Time Status Last Admin (Romazicon Inj) 0.2 mg Q1M PRN IV PUSH 10/01/16 18:30 (Ativan) 1 mg Q4H PRN PO 10/01/16 18:30 (Ativan Inj) 1 mg Q4H PRN IV PUSH 10/01/16 18:30 (Ativan) 2 mg Q2H PRN PO 10/01/16 18:30 (Ativan Inj) 2 mg Q2H PRN IV PUSH 10/01/16 18:30 10/03/16 05:27 (Ativan Inj) 2 mg Q1H PRN IV PUSH 10/01/16 18:30 Lorazepam 2 mg 2 mg Q15M PRN IV PUSH 10/01/16 18:30 10/03/16 09:49 Thiamine HCl 500 mg/Sodium Chloride 255 ml @ 62.5 mls/hr Q8H IV 10/01/16 18:30 10/03/16 18:29 10/03/16 10:21 (Thiamine Inj/NS 250 ml Inj) 505 ml @ 62.5 mls/hr Q24H IV 10/03/16 18:30 10/08/16 18:29 (NS Flush) 2 ml UNSCH PRN IV FLUSH 10/01/16 20:15 (NS Flush) 2 ml BID IV FLUSH 10/01/16 21:00 10/03/16 09:00 (Zofran Inj) 4 mg Q6H PRN IVP 10/01/16 20:15 (Tylenol) 650 mg Q6H PRN PO 10/01/16 20:15 (Roxicodone) 10 mg Q4H PRN PO 10/01/16 20:15 (Roxicodone) 5 mg Q4H PRN PO 10/01/16 20:15 (Lisandra-Colace) 1 tab BID PO 10/01/16 21:00 10/02/16 10:09 (Milk Of Magnesia Liq) 30 ml Q12H PRN PO 10/01/16 20:15 (Senokot) 17.2 mg Q12H PRN PO 10/01/16 20:15 (Dulcolax Supp) 10 mg DAILY PRN RECTAL 10/01/16 20:15 (Lactulose Liq) 30 ml DAILY PRN PO 10/01/16 20:15 (Folate) 1 mg DAILY PO 10/02/16 09:00 10/07/16 08:59 10/02/16 10:09 (Theragran M Tab) 1 tab DAILY PO 10/02/16 09:00 10/07/16 08:59 10/02/16 10:10 (Vitamin B1) 100 mg DAILY PO 10/09/16 09:00 (Catapres) 0.1 mg Q12HR PO 10/02/16 09:00 10/02/16 23:26 (Catapres) 0.1 mg Q6H PRN PO 10/02/16 08:45 (Flexeril) 10 mg TID PO 10/02/16 18:00 10/02/16 18:00 Haloperidol Lactate 2 mg 2 mg Q15M PRN IM 10/03/16 05:30 10/03/16 07:09 Potassium Chloride 100 ml @ 50 mls/hr Q2H PRN IV 10/03/16 08:15 (KCl 20 Meq Premix Inj) 100 ml @ 50 mls/hr Q2H PRN IV 10/03/16 08:15 Potassium Bicarb/ Potassium Chloride 50 meq 50 meq UNSCH PRN PO 10/03/16 08:15 Potassium Chloride 100 ml @ 25 mls/hr UNSCH PRN IV 10/03/16 08:15 Potassium Chloride 100 ml @ 50 mls/hr Q2H PRN IV 10/03/16 08:15 (Magnesium Sulfate Inj/NS Inj) 100 ml @ 50 mls/hr UNSCH PRN IV 10/03/16 08:15 Magnesium Oxide 800 mg 800 mg UNSCH PRN PO 10/03/16 08:15 (Magnesium Sulfate Inj/NS Inj) 100 ml @ 50 mls/hr UNSCH PRN IV 10/03/16 08:15 Potassium Phosphate 2000 mg 2,000 mg Q4H PRN PO 10/03/16 08:15 (Sodium Phosphate Inj/NS 250 ml Inj) 250 ml @ 42 mls/hr UNSCH PRN IV 10/03/16 08:15 Potassium Phosphate 2000 mg 2,000 mg UNSCH PRN PO/TUBE 10/03/16 08:15 (Potassium Phosphate Inj/NS 250 ml Inj) 260 ml @ 42 mls/hr UNSCH PRN IV 10/03/16 08:15 Lorazepam 1 mg 1 mg Q15M PRN IV PUSH 10/03/16 08:15 (Precedex Inj/NS 250 ml Inj) 250 ml @ 0 mls/hr TITRATE IV 10/03/16 09:30 10/03/16 09:49 Allergies Allergies Coded Allergies No Known Allergies (Unverified10/01/16) Exam I&O / VS 10/02/16 10/02/16 10/03/16 15:00 23:00 07:00 Intake Total 1320 ml 360 ml Output Total 150 ml Balance 1320 ml 210 ml Intake Oral 1320 ml 360 ml Output Urine Total 150 ml # Voids 5 2 # Bowel Movements 2 Vital Signs Date Time Temp Pulse Resp B/P Pulse Ox O2 Delivery O2 Flow Rate FiO2 10/03/16 08:00 98.6 168 29 155/89 97 10/03/16 08:00 98 Nasal Cannula 2.00 10/03/16 04:00 100.0 117 16 128/97 97 10/03/16 02:21 Room Air 10/03/16 00:03 100.1 127 17 138/93 95 10/02/16 20:00 100.3 110 20 158/83 98 10/02/16 16:00 100.1 123 18 142/98 96 Objective Micro and Labs Laboratory Tests Test 10/01/16 10/02/16 10/02/16 14:15 00:00 07:00 Platelet Count 112 TH/MM3 91 TH/MM3 (150-450) (150-450) Monocytes (%) (Auto) 14.2 % 17.7 % (0.0-8.0) (0.0-8.0) Monocytes # (Auto) 1.2 TH/MM3 1.2 TH/MM3 (0-0.9) (0-0.9) Sodium Level 132 MEQ/L 135 MEQ/L (136-145) (136-145) Chloride Level 97 MEQ/L (98-107) Carbon Dioxide Level 20.6 MEQ/L (21.0-32.0) Blood Urea Nitrogen 3 MG/DL (7-18) 5 MG/DL (7-18) Random Glucose 126 MG/DL (74-106) Aspartate Amino Transf 181 U/L (15-37) 157 U/L (15-37) (AST/SGOT) Alanine Aminotransferase 120 U/L (12-78) 107 U/L (12-78) (ALT/SGPT) Alkaline Phosphatase 171 U/L 168 U/L (45-117) (45-117) Albumin 2.8 GM/DL 2.7 GM/DL (3.4-5.0) (3.4-5.0) Ethyl Alcohol Level 27 MG/DL (0-5) Urine Ketones 10 mg/dL (NEG) Urine Occult Blood TRACE (NEG) Urine RBC 4 /hpf (0-3) Urine Cannabinoids Screen POS (NEG) Platelet Estimate LOW (NORMAL) Potassium Level 3.2 MEQ/L (3.5-5.1) Total Bilirubin 1.1 MG/DL (0.2-1.0) Total Creatine Kinase 469 U/L (39-308) Creatine Kinase MB 3.8 NG/ML (0.5-3.6) Kit Morris MD Oct 03, 2016 12:23
[2016-10-03] MEDS: POTASSIUM CHLOR 20 MEQ PREMIX 100 ML IV PRN ×2 (13:13→15:31)
[2016-10-03] MEDS ORDERED: cloNIDine HCL 0.1 MG TAB PO PRN (13:45)
[2016-10-03] MEDS: NS + KCL 20 MEQ INJ 1,000 ML IV SCH (13:57)
[2016-10-03 15:44] LABS: AUTOMATED NEUTROPHIL # 7.1 TH/MM3 (1.8-7.7); BASOPHIL % 0.2 % (0.0-2.0); EOSINOPHIL % 0.1 % (0.0-4.0); HEMATOCRIT 45.1 % (39.0-51.0); HEMO FLAGS DIFF FINAL; LYMPH % 7.5 % (9.0-44.0); LYMPHOCYTE # 0.7 TH/MM3 (1.0-4.8); MEAN CELL VOLUME 96.4 FL (80.0-100.0); MEAN CORPUSCULAR HEMOGLOBIN 31.7 PG (27.0-34.0); MEAN CORPUSCULAR HGB CONC 32.9 % (32.0-36.0); MONO % 14.7 % (0.0-8.0); NEUT % 77.5 % (16.0-70.0); PLATELET COUNT 107 TH/MM3 (150-450); RED BLOOD COUNT 4.68 MIL/MM3 (4.50-5.90); RED CELL DISTRIBUTION WIDTH 16.6 % (11.6-17.2); WHITE BLOOD COUNT 9.2 TH/MM3 (4.0-11.0)
[2016-10-03 16:08] LABS: BICARBONATE 21.9 MEQ/L (21.0-32.0); MAGNESIUM 2.4 MG/DL (1.5-2.5); POTASSIUM 4.1 MEQ/L (3.5-5.1)
[2016-10-03] MEDS: THIAMINE INJ 500 MG in SODIUM CHLOR 0.9% 250 ML INJ 500 ML IV SCH (18:53)
[2016-10-04] VITALS (13 sets, daily range): BP systolic 154–170; BP diastolic 70–94; PULSE 80–138; RESP 19–32; TEMP 97.8–100.1; O2SAT 78–96
[2016-10-04] MEDS: DEXMEDETOMIDINE INJ 1,000 MCG in SODIUM CHLOR 0.9% 250 ML INJ 240 ML IV SCH (02:29)
[2016-10-04] MEDS: NS + KCL 20 MEQ INJ 1,000 ML IV SCH ×2 (02:30→14:38)
[2016-10-04] MEDS: LORazepam 2 MG/ML VIAL IV PUSH PRN ×8 (05:30→17:49)
[2016-10-04 06:04] LABS: AUTOMATED NEUTROPHIL # 7.2 TH/MM3 (1.8-7.7); BASOPHIL % 0.5 % (0.0-2.0); EOSINOPHIL # 0.1 TH/MM3 (0-0.4); HEMATOCRIT 44.7 % (39.0-51.0); HEMO FLAGS DIFF FINAL; LYMPH % 9.7 % (9.0-44.0); MEAN CELL VOLUME 96.4 FL (80.0-100.0); MEAN CORPUSCULAR HEMOGLOBIN 32.4 PG (27.0-34.0); MEAN CORPUSCULAR HGB CONC 33.6 % (32.0-36.0); MONO % 16.3 % (0.0-8.0); NEUT % 72.5 % (16.0-70.0); PLATELET COUNT 116 TH/MM3 (150-450); RED BLOOD COUNT 4.63 MIL/MM3 (4.50-5.90); RED CELL DISTRIBUTION WIDTH 16.1 % (11.6-17.2)
[2016-10-04 06:31] LABS: POTASSIUM 4.3 MEQ/L (3.5-5.1)
--- NOTE | 2016-10-04 07:22 | HHI.PR ---
Review/Management Daily Summary 10/03 seen before transferred to the unit very agitated 4 point restraint needed would be calm for few seconds upon staff coaching typical delirium tremens, iv fluids, sedation and supportive care 10/04 delirium tremens persist continue sedation and support medical care sedated now after ativan, quiet Subjective Subjective Comments intt agitated, 2 doses of ativan 2 mg this early am Active Medications Current Medications Medications (Trade) Dose Ordered Sig/Mily Route Start Time Stop Time Status Last Admin (Romazicon Inj) 0.2 mg Q1M PRN IV PUSH 10/01/16 18:30 (Ativan) 1 mg Q4H PRN PO 10/01/16 18:30 (Ativan Inj) 1 mg Q4H PRN IV PUSH 10/01/16 18:30 10/03/16 23:55 (Ativan) 2 mg Q2H PRN PO 10/01/16 18:30 (Ativan Inj) 2 mg Q2H PRN IV PUSH 10/01/16 18:30 10/03/16 19:08 (Ativan Inj) 2 mg Q1H PRN IV PUSH 10/01/16 18:30 Lorazepam 2 mg 2 mg Q15M PRN IV PUSH 10/01/16 18:30 10/04/16 06:26 (Thiamine Inj/NS 250 ml Inj) 505 ml @ 62.5 mls/hr Q24H IV 10/03/16 18:30 10/08/16 18:29 10/03/16 18:53 (NS Flush) 2 ml UNSCH PRN IV FLUSH 10/01/16 20:15 (NS Flush) 2 ml BID IV FLUSH 10/01/16 21:00 10/03/16 19:50 (Zofran Inj) 4 mg Q6H PRN IVP 10/01/16 20:15 (Tylenol) 650 mg Q6H PRN PO 10/01/16 20:15 (Roxicodone) 10 mg Q4H PRN PO 10/01/16 20:15 10/03/16 23:54 (Roxicodone) 5 mg Q4H PRN PO 10/01/16 20:15 (Lisandra-Colace) 1 tab BID PO 10/01/16 21:00 10/03/16 19:50 (Milk Of Magnesia Liq) 30 ml Q12H PRN PO 10/01/16 20:15 (Senokot) 17.2 mg Q12H PRN PO 10/01/16 20:15 (Dulcolax Supp) 10 mg DAILY PRN RECTAL 10/01/16 20:15 (Lactulose Liq) 30 ml DAILY PRN PO 10/01/16 20:15 (Folate) 1 mg DAILY PO 10/02/16 09:00 10/07/16 08:59 10/02/16 10:09 (Theragran M Tab) 1 tab DAILY PO 10/02/16 09:00 10/07/16 08:59 10/02/16 10:10 (Vitamin B1) 100 mg DAILY PO 10/09/16 09:00 (Catapres) 0.1 mg Q12HR PO 10/02/16 09:00 10/03/16 19:50 (Catapres) 0.1 mg Q6H PRN PO 10/02/16 08:45 (Flexeril) 10 mg TID PO 10/02/16 18:00 10/03/16 19:08 Haloperidol Lactate 2 mg 2 mg Q15M PRN IM 10/03/16 05:30 10/03/16 07:09 Potassium Chloride 100 ml @ 50 mls/hr Q2H PRN IV 10/03/16 08:15 (KCl 20 Meq Premix Inj) 100 ml @ 50 mls/hr Q2H PRN IV 10/03/16 08:15 10/03/16 15:31 Potassium Bicarb/ Potassium Chloride 50 meq 50 meq UNSCH PRN PO 10/03/16 08:15 Potassium Chloride 100 ml @ 25 mls/hr UNSCH PRN IV 10/03/16 08:15 Potassium Chloride 100 ml @ 50 mls/hr Q2H PRN IV 10/03/16 08:15 (Magnesium Sulfate Inj/NS Inj) 100 ml @ 50 mls/hr UNSCH PRN IV 10/03/16 08:15 Magnesium Oxide 800 mg 800 mg UNSCH PRN PO 10/03/16 08:15 (Magnesium Sulfate Inj/NS Inj) 100 ml @ 50 mls/hr UNSCH PRN IV 10/03/16 08:15 Potassium Phosphate 2000 mg 2,000 mg Q4H PRN PO 10/03/16 08:15 (Sodium Phosphate Inj/NS 250 ml Inj) 250 ml @ 42 mls/hr UNSCH PRN IV 10/03/16 08:15 Potassium Phosphate 2000 mg 2,000 mg UNSCH PRN PO/TUBE 10/03/16 08:15 (Potassium Phosphate Inj/NS 250 ml Inj) 260 ml @ 42 mls/hr UNSCH PRN IV 10/03/16 08:15 Lorazepam 1 mg 1 mg Q15M PRN IV PUSH 10/03/16 08:15 Dexmedetomidine HCl 1000 mcg/ Sodium Chloride 250 ml @ 0 mls/hr TITRATE IV 10/03/16 09:30 10/04/16 02:29 (NS + KCl 20 Meq Inj) 1,000 ml @ 84 mls/hr Q11M78H IV 10/03/16 13:45 10/04/16 02:30 (Vasotec Inj) 1.25 mg Q6H PRN IV 10/03/16 13:45 (Catapres) 0.1 mg Q6H PRN PO 10/03/16 13:45 Allergies Allergies Coded Allergies No Known Allergies (Unverified10/01/16) Exam I&O / VS 10/03/16 10/03/16 10/04/16 14:59 22:59 06:59 Intake Total 150 ml 1288 ml Output Total 500 ml 50 ml Balance -350 ml 1238 ml Intake Oral 25 ml 240 ml IV Total 125 ml 1048 ml Output Urine Total 500 ml 50 ml # Voids 1 Vital Signs Date Time Temp Pulse Resp B/P Pulse Ox O2 Delivery O2 Flow Rate FiO2 10/04/16 02:00 164/89 10/04/16 02:00 82 10/04/16 00:30 168/88 10/04/16 00:00 98.6 80 21 170/92 95 10/04/16 00:00 106 10/03/16 22:00 82 10/03/16 20:00 92 10/03/16 20:00 99 Simple Mask 4.00 10/03/16 20:00 99.1 92 22 154/97 99 10/03/16 16:00 98.6 81 17 135/79 98 10/03/16 12:00 98.7 107 25 113/73 95 10/03/16 08:00 98.6 168 29 155/89 97 10/03/16 08:00 98 Nasal Cannula 2.00 Objective Micro and Labs Laboratory Tests Test 10/03/16 10/03/16 10/04/16 10/04/16 11:00 15:15 05:30 05:50 Nasal Screen MRSA (PCR) MRSA NOT DETECTED White Blood Count 9.2 10.0 Red Blood Count 4.68 4.63 Hemoglobin 14.8 15.0 Hematocrit 45.1 44.7 Mean Corpuscular Volume 96.4 96.4 Mean Corpuscular Hemoglobin 31.7 32.4 Mean Corpuscular Hemoglobin 32.9 33.6 Concent Red Cell Distribution Width 16.6 16.1 Platelet Count 107 116 Mean Platelet Volume 9.1 9.6 Neutrophils (%) (Auto) 77.5 72.5 Lymphocytes (%) (Auto) 7.5 9.7 Monocytes (%) (Auto) 14.7 16.3 Eosinophils (%) (Auto) 0.1 1.0 Basophils (%) (Auto) 0.2 0.5 Neutrophils # (Auto) 7.1 7.2 Lymphocytes # (Auto) 0.7 1.0 Monocytes # (Auto) 1.3 1.6 Eosinophils # (Auto) 0.0 0.1 Basophils # (Auto) 0.0 0.0 CBC Comment DIFF FINAL DIFF FINAL Differential Comment Sodium Level 136 138 Potassium Level 4.1 4.3 Chloride Level 103 105 Carbon Dioxide Level 21.9 21.0 Anion Gap 11 12 Blood Urea Nitrogen 12 12 Creatinine 0.62 0.58 Estimat Glomerular Filtration 138 149 Rate Random Glucose 89 77 Calcium Level 8.5 8.7 Phosphorus Level 5.6 Magnesium Level 2.4 2.0 Kit Morris MD Oct 04, 2016 07:22
[2016-10-04] MEDS: SODIUM CHLORIDE 0.9% FLUSH 10 ML FLUSH IV FLUSH SCH ×2 (11:02→21:00)
[2016-10-04] MEDS: CYCLOBENZAPRINE HCL 10 MG TAB PO SCH ×3 (11:03→17:49)
[2016-10-04] MEDS: DOCUSATE SODIUM 50 MG/SENNA 8.6 MG TAB PO SCH ×2 (11:03→19:49)
[2016-10-04] MEDS: FOLIC ACID 1 MG TAB PO SCH (11:03)
[2016-10-04] MEDS: MULTIVITAMINS/MINERALS THERAPEUTIC TAB PO SCH (11:03)
[2016-10-04] MEDS: cloNIDine HCL 0.1 MG TAB PO SCH ×2 (11:03→19:49)
--- NOTE | 2016-10-04 11:51 | HHI.PR ---
Subjective Remarks Follow-up DTs. Patient is easily arousable and oriented to person, place, month and year. He wants restraints to be discontinued still on low dose Precedex drip. He agrees to alcohol cessation states he's been trying to stop drinking. Denies hallucinations. 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 Vital Signs Date Time Temp Pulse Resp B/P Pulse Ox O2 Delivery O2 Flow Rate FiO2 10/04/16 06:00 84 10/04/16 04:00 82 10/04/16 04:00 97.8 82 19 159/91 96 10/04/16 02:00 164/89 10/04/16 02:00 82 10/04/16 00:30 168/88 10/04/16 00:00 98.6 80 21 170/92 95 10/04/16 00:00 106 10/03/16 22:00 82 10/03/16 20:00 92 10/03/16 20:00 99 Simple Mask 4.00 10/03/16 20:00 99.1 92 22 154/97 99 10/03/16 16:00 98.6 81 17 135/79 98 10/03/16 12:00 98.7 107 25 113/73 95 I/O 10/03/16 10/03/16 10/03/16 10/04/16 10/04/16 10/04/16 07:00 15:00 23:00 07:00 15:00 23:00 Intake Total 360 ml 150 ml 1288 ml 872 ml Output Total 150 ml 500 ml 50 ml 350 ml Balance 210 ml -350 ml 1238 ml 522 ml Intake Oral 360 ml 25 ml 240 ml 240 ml IV Total 125 ml 1048 ml 632 ml Output Urine Total 150 ml 500 ml 50 ml 350 ml # Voids 2 1 0 Result Diagram: 10/04/16 0530 10/04/16 0550 Imaging Last Impressions Head CT 10/01/16 0000 Signed Impressions: Service Date/Time: Saturday, October 01, 2016 17:04 - CONCLUSION: 1. Left posterior perivertex cephalhematoma. 2. Otherwise negative with no acute intracranial process from trauma or fracture. Tom Torres MD Objective Remarks GENERAL: Well-developed, well-nourished protecting his airway SKIN: Warm and dry. CARDIOVASCULAR: Regular rate and rhythm. RESPIRATORY: No accessory muscle use. Clear to auscultation. Breath sounds equal bilaterally. GASTROINTESTINAL: Abdomen soft, nondistended. MUSCULOSKELETAL: Extremities without clubbing, cyanosis, or edema. No obvious deformities. NEUROLOGICAL: Easily arousable oriented 3 No obvious cranial nerve deficits. Moving all extremities on 4 point restraints Procedures none A/P Problem List: (1) Encephalopathy ICD Code: G93.40 Status: Acute (2) Seizure ICD Code: R56.9 Status: Acute (3) Alcohol withdrawal ICD Code: F10.239 Status: Acute (4) Tremor of both hands ICD Code: R25.1 Status: Acute (5) Thrombocytopenia ICD Code: D69.6 Status: Acute Assessment and Plan Delirium tremens. Still with episodes of agitation continue supportive care with IV fluids and precedex drip. Continue CIWA protocol and thiamine/folate/ multivitamins. We'll consider discontinuing restraints. Patient high risk of decompensation we'll keep in ICU for now Toxic encephalopathy: Head CT without acute findings. Improved. MRI has been ordered. Neurochecks Alcohol withdrawal seizure: per EMS, witnessed seizure by friends, pt denies h/ o seizure. CT Head as above. EEG negative. Alcohol 27. U/a and Urine Drug Screen positive for marijuana and alcohol. Stable. Follow-up MRI of the brain. Seizure precautions. No driving for 6 months, carrying young kids, climbing heights and swim alone Thrombocytopenia likely from alcohol. Improving. Monitor Transaminitis secondary to alcohol. We'll monitor Tobacco Abuse: Pt counselled. NicoDerm prn if needed. DVT Prophylaxis: SCD/Teds. Hold pharmacological prophylaxis because of worsening thrombocytopenia Discharge Planning Is critically ill and will need close monitoring in the ICU specially on Precedex drip. 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 Critical care time spent 30 minutes Jose Tanner MD Oct 04, 2016 11:51
[2016-10-04] MEDS: HALOPERIDOL LACTATE 5 MG/ML AMP IM PRN ×4 (14:19→17:49)
--- NOTE | 2016-10-04 16:48 | EKG ---
Date Performed: 10/03/2016 Time Performed: 11:05:54 PTAGE: 51 years EKG: Sinus rhythm . Normal ECG PREVIOUS TRACING 10/01/16 @ 14.17.06 Compared to prior tracing no significant change DOCTOR: Fern Burton Interpretating Date/Time 10/04/2016 16:46:10
[2016-10-04] MEDS: cloNIDine HCL 0.1 MG TAB PO PRN (18:00)
[2016-10-04] MEDS: THIAMINE INJ 500 MG in SODIUM CHLOR 0.9% 250 ML INJ 500 ML IV SCH (18:36)
[2016-10-05] VITALS (13 sets, daily range): BP systolic 130–169; BP diastolic 72–94; PULSE 82–130; RESP 19–28; TEMP 98.2–99.7; O2SAT 93–94
[2016-10-05] MEDS: DEXMEDETOMIDINE INJ 1,000 MCG in SODIUM CHLOR 0.9% 250 ML INJ 240 ML IV SCH ×3 (01:20→22:57)
[2016-10-05] MEDS: LORazepam 2 MG/ML VIAL IV PUSH PRN ×6 (01:20→18:37)
[2016-10-05] MEDS: NS + KCL 20 MEQ INJ 1,000 ML IV SCH ×2 (03:23→14:25)
[2016-10-05] MEDS: ENALAPRILAT 1.25 MG/ML VIAL IV PRN ×2 (03:43→12:17)
[2016-10-05 06:15] LABS: BICARBONATE 22.5 MEQ/L (21.0-32.0); MAGNESIUM 1.7 MG/DL (1.5-2.5); POTASSIUM 3.5 MEQ/L (3.5-5.1)
--- NOTE | 2016-10-05 09:14 | HHI.PR ---
Review/Management Daily Summary 10/03 seen before transferred to the unit very agitated 4 point restraint needed would be calm for few seconds upon staff coaching typical delirium tremens, iv fluids, sedation and supportive care 10/04 delirium tremens persist continue sedation and support medical care sedated now after ativan, quiet 10/05 awakened and agitated wants to go home follows commands well moves 4 limbs strongly pending mri, too agitated for procedure continue DT's care Subjective Subjective Comments No new acute events reported No headache No chest pain No dyspnea Active Medications Current Medications Medications (Trade) Dose Ordered Sig/Mily Route Start Time Stop Time Status Last Admin (Romazicon Inj) 0.2 mg Q1M PRN IV PUSH 10/01/16 18:30 (Ativan) 1 mg Q4H PRN PO 10/01/16 18:30 10/04/16 19:48 (Ativan Inj) 1 mg Q4H PRN IV PUSH 10/01/16 18:30 10/05/16 01:20 (Ativan) 2 mg Q2H PRN PO 10/01/16 18:30 (Ativan Inj) 2 mg Q2H PRN IV PUSH 10/01/16 18:30 10/03/16 19:08 (Ativan Inj) 2 mg Q1H PRN IV PUSH 10/01/16 18:30 10/05/16 06:58 Lorazepam 2 mg 2 mg Q15M PRN IV PUSH 10/01/16 18:30 10/04/16 17:49 (Thiamine Inj/NS 250 ml Inj) 505 ml @ 62.5 mls/hr Q24H IV 10/03/16 18:30 10/08/16 18:29 10/04/16 18:36 (NS Flush) 2 ml UNSCH PRN IV FLUSH 10/01/16 20:15 10/04/16 19:49 (NS Flush) 2 ml BID IV FLUSH 10/01/16 21:00 10/04/16 11:02 (Zofran Inj) 4 mg Q6H PRN IVP 10/01/16 20:15 (Tylenol) 650 mg Q6H PRN PO 10/01/16 20:15 (Roxicodone) 10 mg Q4H PRN PO 10/01/16 20:15 10/03/16 23:54 (Roxicodone) 5 mg Q4H PRN PO 10/01/16 20:15 (Lisandra-Colace) 1 tab BID PO 10/01/16 21:00 10/04/16 19:49 (Milk Of Magnesia Liq) 30 ml Q12H PRN PO 10/01/16 20:15 (Senokot) 17.2 mg Q12H PRN PO 10/01/16 20:15 (Dulcolax Supp) 10 mg DAILY PRN RECTAL 10/01/16 20:15 (Lactulose Liq) 30 ml DAILY PRN PO 10/01/16 20:15 (Folate) 1 mg DAILY PO 10/02/16 09:00 10/07/16 08:59 10/04/16 11:03 (Theragran M Tab) 1 tab DAILY PO 10/02/16 09:00 10/07/16 08:59 10/04/16 11:03 (Vitamin B1) 100 mg DAILY PO 10/09/16 09:00 (Catapres) 0.1 mg Q12HR PO 10/02/16 09:00 10/04/16 19:49 (Catapres) 0.1 mg Q6H PRN PO 10/02/16 08:45 10/04/16 18:00 (Flexeril) 10 mg TID PO 10/02/16 18:00 10/04/16 17:49 Haloperidol Lactate 2 mg 2 mg Q15M PRN IM 10/03/16 05:30 10/04/16 17:49 Potassium Chloride 100 ml @ 50 mls/hr Q2H PRN IV 10/03/16 08:15 (KCl 20 Meq Premix Inj) 100 ml @ 50 mls/hr Q2H PRN IV 10/03/16 08:15 10/03/16 15:31 Potassium Bicarb/ Potassium Chloride 50 meq 50 meq UNSCH PRN PO 10/03/16 08:15 Potassium Chloride 100 ml @ 25 mls/hr UNSCH PRN IV 10/03/16 08:15 Potassium Chloride 100 ml @ 50 mls/hr Q2H PRN IV 10/03/16 08:15 (Magnesium Sulfate Inj/NS Inj) 100 ml @ 50 mls/hr UNSCH PRN IV 10/03/16 08:15 Magnesium Oxide 800 mg 800 mg UNSCH PRN PO 10/03/16 08:15 (Magnesium Sulfate Inj/NS Inj) 100 ml @ 50 mls/hr UNSCH PRN IV 10/03/16 08:15 Potassium Phosphate 2000 mg 2,000 mg Q4H PRN PO 10/03/16 08:15 (Sodium Phosphate Inj/NS 250 ml Inj) 250 ml @ 42 mls/hr UNSCH PRN IV 10/03/16 08:15 Potassium Phosphate 2000 mg 2,000 mg UNSCH PRN PO/TUBE 10/03/16 08:15 (Potassium Phosphate Inj/NS 250 ml Inj) 260 ml @ 42 mls/hr UNSCH PRN IV 10/03/16 08:15 Lorazepam 1 mg 1 mg Q15M PRN IV PUSH 10/03/16 08:15 Dexmedetomidine HCl 1000 mcg/ Sodium Chloride 250 ml @ 0 mls/hr TITRATE IV 10/03/16 09:30 10/05/16 01:20 (NS + KCl 20 Meq Inj) 1,000 ml @ 84 mls/hr [id number] IV 10/03/16 13:45 10/05/16 03:23 (Vasotec Inj) 1.25 mg Q6H PRN IV 10/03/16 13:45 10/05/16 03:43 (Catapres) 0.1 mg Q6H PRN PO 10/03/16 13:45 Allergies Allergies Coded Allergies No Known Allergies (Unverified10/01/16) Exam I&O / VS 10/04/16 10/04/16 10/05/16 15:00 23:00 07:00 Intake Total 1765 ml 906 ml 853 ml Output Total 750 ml 400 ml 650 ml Balance 1015 ml 506 ml 203 ml Intake Oral 804 ml 360 ml 120 ml IV Total 961 ml 546 ml 733 ml Output Urine Total 750 ml 400 ml 650 ml # Bowel Movements 1 Vital Signs Date Time Temp Pulse Resp B/P Pulse Ox O2 Delivery O2 Flow Rate FiO2 10/05/16 06:00 84 10/05/16 04:00 98.6 86 21 167/80 94 10/05/16 04:00 86 10/05/16 02:00 84 10/05/16 00:00 86 10/05/16 00:00 98.4 86 21 163/94 93 10/04/16 22:00 96 10/04/16 20:00 100.1 108 21 154/85 95 10/04/16 20:00 108 10/04/16 19:39 Blow By 10/04/16 18:00 131 10/04/16 16:00 98.0 130 28 163/70 78 10/04/16 16:00 138 10/04/16 14:00 110 10/04/16 12:00 99.2 117 30 159/91 96 10/04/16 12:00 88 10/04/16 10:00 118 Objective Micro and Labs Laboratory Tests Test 10/05/16 04:34 Sodium Level 138 Potassium Level 3.5 Chloride Level 104 Carbon Dioxide Level 22.5 Anion Gap 12 Blood Urea Nitrogen 7 Creatinine 0.37 Estimat Glomerular Filtration 250 Rate Random Glucose 94 Calcium Level 8.6 Phosphorus Level 2.6 Magnesium Level 1.7 Kit Morris MD Oct 05, 2016 09:13
[2016-10-05] MEDS: FOLIC ACID 1 MG TAB PO SCH (09:29)
[2016-10-05] MEDS: MULTIVITAMINS/MINERALS THERAPEUTIC TAB PO SCH (09:29)
[2016-10-05] MEDS: cloNIDine HCL 0.1 MG TAB PO SCH ×2 (09:29→21:31)
[2016-10-05] MEDS: SODIUM CHLORIDE 0.9% FLUSH 10 ML FLUSH IV FLUSH SCH ×2 (09:29→21:00)
[2016-10-05] MEDS: DOCUSATE SODIUM 50 MG/SENNA 8.6 MG TAB PO SCH ×2 (09:29→21:31)
[2016-10-05] MEDS: CYCLOBENZAPRINE HCL 10 MG TAB PO SCH ×3 (09:29→17:41)
--- NOTE | 2016-10-05 11:22 | HHI.PR ---
Subjective Remarks Follow-up DTs. After weaning Precedex drip yesterday, patient became agitated and required 6 doses of Ativan and 4 doses of Haldol. Precedex drip restarted. Today already received 4 doses of Ativan latest CIWA score of 13. He is easily arousable remains confused following simple commands discussed with RN Objective Vitals Vital Signs Date Time Temp Pulse Resp B/P Pulse Ox O2 Delivery O2 Flow Rate FiO2 10/05/16 10:00 87 10/05/16 09:00 156/86 10/05/16 08:00 94 10/05/16 08:00 99.7 94 28 169/72 93 10/05/16 06:00 84 10/05/16 04:00 98.6 86 21 167/80 94 10/05/16 04:00 86 10/05/16 02:00 84 10/05/16 00:00 86 10/05/16 00:00 98.4 86 21 163/94 93 10/04/16 22:00 96 10/04/16 20:00 100.1 108 21 154/85 95 10/04/16 20:00 108 10/04/16 19:39 Blow By 10/04/16 18:00 131 10/04/16 16:00 98.0 130 28 163/70 78 10/04/16 16:00 138 10/04/16 14:00 110 10/04/16 12:00 99.2 117 30 159/91 96 10/04/16 12:00 88 I/O 10/04/16 10/04/16 10/04/16 10/05/16 10/05/16 10/05/16 06:59 14:59 22:59 06:59 14:59 22:59 Intake Total 872 ml 1765 ml 906 ml 853 ml Output Total 350 ml 750 ml 400 ml 650 ml Balance 522 ml 1015 ml 506 ml 203 ml Intake Oral 240 ml 804 ml 360 ml 120 ml IV Total 632 ml 961 ml 546 ml 733 ml Output Urine Total 350 ml 750 ml 400 ml 650 ml # Voids 0 # Bowel Movements 1 Result Diagram: 10/04/16 0530 10/05/16 0434 Objective Remarks GENERAL: Well-developed, well-nourished protecting his airway SKIN: Warm and dry. CARDIOVASCULAR: Regular rate and rhythm. RESPIRATORY: No accessory muscle use. Clear to auscultation. Breath sounds equal bilaterally. GASTROINTESTINAL: Abdomen soft, nondistended. MUSCULOSKELETAL: Extremities without clubbing, cyanosis, or edema. No obvious deformities. NEUROLOGICAL: Easily arousable oriented 3 No obvious cranial nerve deficits. Moving all extremities on 4 point restraints. Tremors Procedures none A/P Problem List: (1) Encephalopathy ICD Code: G93.40 Status: Acute (2) Seizure ICD Code: R56.9 Status: Acute (3) Alcohol withdrawal ICD Code: F10.239 Status: Acute (4) Tremor of both hands ICD Code: R25.1 Status: Acute (5) Thrombocytopenia ICD Code: D69.6 Status: Acute Assessment and Plan Delirium tremens. Still with episodes of agitation continue supportive care with IV fluids and precedex drip. Continue CIWA protocol and thiamine/folate/ multivitamins. We'll consider discontinuing restraints. Patient high risk of decompensation we'll keep in ICU for now Toxic encephalopathy: Head CT without acute findings. Improved. MRI has been ordered. Neurochecks Alcohol withdrawal seizure: per EMS, witnessed seizure by friends, pt denies h/ o seizure. CT Head as above. EEG negative. Alcohol 27. U/a and Urine Drug Screen positive for marijuana and alcohol. Stable. Follow-up MRI of the brain. Seizure precautions. No driving for 6 months, carrying young kids, climbing heights and swim alone Thrombocytopenia likely from alcohol. Improving. Monitor Transaminitis secondary to alcohol. We'll monitor Tobacco Abuse: Pt counselled. NicoDerm prn if needed. DVT Prophylaxis: SCD/Teds. Hold pharmacological prophylaxis because of worsening thrombocytopenia Discharge Planning Is critically ill and will need close monitoring in the ICU specially on Precedex drip. 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 Critical care time spent 35 minutes Jose Tanner MD Oct 05, 2016 11:22
[2016-10-05] MEDS: HEPARIN SODIUM - SQ 10,000 UNITS/ML VIAL SQ SCH (12:17)
[2016-10-05] MEDS: HALOPERIDOL LACTATE 5 MG/ML AMP IM PRN (17:29)
[2016-10-05] MEDS: THIAMINE INJ 500 MG in SODIUM CHLOR 0.9% 250 ML INJ 500 ML IV SCH (18:07)
[2016-10-06] VITALS (13 sets, daily range): BP systolic 104–187; BP diastolic 60–97; PULSE 71–138; RESP 16–25; TEMP 98.1–100.3; O2SAT 91–97
[2016-10-06] MEDS: LORazepam 2 MG/ML VIAL IV PUSH PRN ×5 (00:35→17:18)
[2016-10-06] MEDS: HEPARIN SODIUM - SQ 10,000 UNITS/ML VIAL SQ SCH ×2 (00:35→11:35)
[2016-10-06] MEDS: NS + KCL 20 MEQ INJ 1,000 ML IV SCH ×2 (01:20→15:46)
[2016-10-06 05:29] LABS: AUTOMATED NEUTROPHIL # 4.9 TH/MM3 (1.8-7.7); BASOPHIL % 0.5 % (0.0-2.0); EOSINOPHIL % 0.6 % (0.0-4.0); HEMATOCRIT 44.6 % (39.0-51.0); HEMO FLAGS DIFF FINAL; LYMPH % 11.3 % (9.0-44.0); LYMPHOCYTE # 0.8 TH/MM3 (1.0-4.8); MEAN CORPUSCULAR HEMOGLOBIN 32.6 PG (27.0-34.0); MEAN CORPUSCULAR HGB CONC 33.5 % (32.0-36.0); MONO % 19.9 % (0.0-8.0); NEUT % 67.7 % (16.0-70.0); PLATELET COUNT 160 TH/MM3 (150-450); RED CELL DISTRIBUTION WIDTH 15.9 % (11.6-17.2); WHITE BLOOD COUNT 7.3 TH/MM3 (4.0-11.0)
[2016-10-06 05:49] LABS: BICARBONATE 21.9 MEQ/L (21.0-32.0); MAGNESIUM 1.6 MG/DL (1.5-2.5); POTASSIUM 3.7 MEQ/L (3.5-5.1)
[2016-10-06] MEDS: HALOPERIDOL LACTATE 5 MG/ML AMP IM PRN ×2 (05:50→11:36)
[2016-10-06] MEDS ORDERED: DEXTROSE 50% IN WATER 50 ML SYRINGE ONE (06:23)
[2016-10-06] MEDS ORDERED: DEXTROSE 50% IN WATER 50 ML VIAL(D50) IV PUSH ONE (06:30)
[2016-10-06] MEDS: DEXMEDETOMIDINE INJ 1,000 MCG in SODIUM CHLOR 0.9% 250 ML INJ 240 ML IV SCH (08:11)
[2016-10-06] MEDS: cloNIDine HCL 0.1 MG TAB PO SCH ×2 (08:59→20:21)
[2016-10-06] MEDS: DOCUSATE SODIUM 50 MG/SENNA 8.6 MG TAB PO SCH ×2 (08:59→20:12)
[2016-10-06] MEDS: MULTIVITAMINS/MINERALS THERAPEUTIC TAB PO SCH (08:59)
[2016-10-06] MEDS: CYCLOBENZAPRINE HCL 10 MG TAB PO SCH ×3 (08:59→17:18)
[2016-10-06] MEDS: FOLIC ACID 1 MG TAB PO SCH (08:59)
[2016-10-06] MEDS: SODIUM CHLORIDE 0.9% FLUSH 10 ML FLUSH IV FLUSH SCH ×2 (08:59→20:21)
--- NOTE | 2016-10-06 15:23 | HHI.PR ---
Subjective Remarks Follow-up DTs. Lethargic easily arousable. Discussed with RN, when Precedex drip was weaned off he became agitated and required IV Ativan and Haldol. We' ll start Librium. 2 max assist when patient got out of bed. Objective Vitals Vital Signs Date Time Temp Pulse Resp B/P Pulse Ox O2 Delivery O2 Flow Rate FiO2 10/06/16 14:00 113 10/06/16 12:00 98.5 110 20 107/92 92 10/06/16 12:00 110 10/06/16 10:00 118 10/06/16 08:00 90 10/06/16 08:00 93 Room Air 10/06/16 08:00 98.3 92 16 129/60 92 10/06/16 06:00 83 10/06/16 04:30 128/70 10/06/16 04:00 98.6 82 23 187/80 95 10/06/16 04:00 82 10/06/16 02:00 76 10/06/16 00:00 98.1 82 18 150/97 91 10/06/16 00:00 86 10/05/16 22:00 86 10/05/16 20:00 98.3 82 19 158/80 93 10/05/16 20:00 82 10/05/16 19:00 93 Room Air 10/05/16 18:00 84 10/05/16 16:00 93 10/05/16 16:00 98.2 I/O 10/05/16 10/05/16 10/05/16 10/06/16 10/06/16 10/06/16 07:00 15:00 23:00 07:00 15:00 23:00 Intake Total 853 ml 1245 ml 1306 ml 880 ml 1234 ml Output Total 650 ml 475 ml 350 ml 1050 ml 300 ml Balance 203 ml 770 ml 956 ml -170 ml 934 ml Intake Oral 120 ml 120 ml 120 ml 60 ml 360 ml IV Total 733 ml 1125 ml 1186 ml 820 ml 874 ml Output Urine Total 650 ml 475 ml 350 ml 1050 ml 300 ml # Voids 1 # Bowel Movements 1 0 1 1 Result Diagram: 10/06/16 0504 10/06/16 0504 Objective Remarks GENERAL: Well-developed, well-nourished protecting his airway SKIN: Warm and dry. CARDIOVASCULAR: Regular rate and rhythm. RESPIRATORY: No accessory muscle use. Clear to auscultation. Breath sounds equal bilaterally. GASTROINTESTINAL: Abdomen soft, nondistended. MUSCULOSKELETAL: Extremities without clubbing, cyanosis, or edema. No obvious deformities. NEUROLOGICAL: Easily arousable oriented 3 No obvious cranial nerve deficits. Moving all extremities on 4 point restraints. Improving tremors Procedures none A/P Problem List: (1) Encephalopathy ICD Code: G93.40 Status: Acute (2) Seizure ICD Code: R56.9 Status: Acute (3) Alcohol withdrawal ICD Code: F10.239 Status: Acute (4) Tremor of both hands ICD Code: R25.1 Status: Acute (5) Thrombocytopenia ICD Code: D69.6 Status: Acute Assessment and Plan Delirium tremens. Still with episodes of agitation continue supportive care with IV fluids, CIWA protocol and thiamine/folate/multivitamins. Wean and discontinue Precedex drip. Start Librium. We'll consider discontinuing restraints. Patient high risk of decompensation we'll keep in ICU for now Toxic encephalopathy: Head CT without acute findings. Improved. MRI has been ordered. Neurochecks Alcohol withdrawal seizure: per EMS, witnessed seizure by friends, pt denies h/ o seizure. CT Head as above. EEG negative. Alcohol 27. U/a and Urine Drug Screen positive for marijuana and alcohol. Stable. Follow-up MRI of the brain. Seizure precautions. No driving for 6 months, carrying young kids, climbing heights and swim alone Thrombocytopenia likely from alcohol. Improving. Monitor Transaminitis secondary to alcohol. We'll monitor Tobacco Abuse: Pt counselled. NicoDerm prn if needed. Deconditioning. Continue physical therapy. Consult OT DVT Prophylaxis: SCD/Teds. Subcutaneous heparin Discharge Planning Not ready for discharge. May transfer to floor if off Precedex drip Jose Tanner MD Oct 06, 2016 15:23
[2016-10-06] MEDS: chlordiazePOXIDE 25 MG CAP PO SCH (17:18)
[2016-10-06] MEDS: THIAMINE INJ 500 MG in SODIUM CHLOR 0.9% 250 ML INJ 500 ML IV SCH (17:23)
[2016-10-06] MEDS: cloNIDine HCL 0.1 MG TAB PO PRN (20:21)
[2016-10-07] VITALS: BP 124/70; PULSE 111; RESP 21; TEMP 99.1; O2SAT 93
[2016-10-07] MEDS: HEPARIN SODIUM - SQ 10,000 UNITS/ML VIAL SQ SCH
[2016-10-07] MEDS: NS + KCL 20 MEQ INJ 1,000 ML IV SCH (00:53)
[2016-10-07 02:00] VITALS: PULSE 113
[2016-10-07 04:00] VITALS: BP 121/73; PULSE 106; PULSE 134; RESP 18; TEMP 99.6; O2SAT 93
[2016-10-07 06:00] VITALS: PULSE 110
[2016-10-07 08:00] VITALS: BP 139/86; PULSE 134; RESP 22; TEMP 98.7; O2SAT 97
[2016-10-07] MEDS: cloNIDine HCL 0.1 MG TAB PO SCH (08:13)
[2016-10-07] MEDS: CYCLOBENZAPRINE HCL 10 MG TAB PO SCH (08:13)
[2016-10-07] MEDS: DOCUSATE SODIUM 50 MG/SENNA 8.6 MG TAB PO SCH (08:13)
[2016-10-07] MEDS: chlordiazePOXIDE 25 MG CAP PO SCH (08:13)
[2016-10-07] MEDS: HALOPERIDOL LACTATE 5 MG/ML AMP IM PRN (08:13)
[2016-10-07] MEDS: SODIUM CHLORIDE 0.9% FLUSH 10 ML FLUSH IV FLUSH SCH (08:13)
[2016-10-07] MEDS: LORazepam 2 MG/ML VIAL IV PUSH PRN (09:17)
--- NOTE | 2016-10-07 10:01 | HHI.PR ---
Subjective Remarks Mr. Lopez is seen this morning and animate about leaving today. He would like to be discharged, but reports that he will leave AMA if no discharge is provided. He has an MRI ordered to evaluate his brain status post acute seizure activity (new seizures, no prior history of seizure). Risk of withdraw related to alcohol is discussed with the patient, he denies that he drinks regularly or heavily. Possible need for further treatment plans with neurology if seizure is related to prior CVA rather than ETOH is discussed with the patient. He does not intend to wait for Neurology recommendations. He is no longer exhibiting confusion when I see him this morning and he is fully alert and oriented. [employer] is no longer in place. I disagree with him leaving and have recommended he stay to complete his work up and finish a treatment plan. Objective Vital Signs Date Time Temp Pulse Resp B/P Pulse Ox O2 Delivery O2 Flow Rate FiO2 10/07/16 08:00 98.7 134 22 139/86 97 10/07/16 08:00 97 Room Air 10/07/16 08:00 134 10/07/16 06:00 110 10/07/16 04:00 99.6 134 18 121/73 93 10/07/16 04:00 106 10/07/16 02:00 113 10/07/16 00:00 99.1 111 21 124/70 93 10/07/16 00:00 111 10/06/16 22:00 108 10/06/16 20:00 100.3 138 25 135/72 97 10/06/16 20:00 117 10/06/16 19:00 97 Room Air 10/06/16 18:00 117 10/06/16 16:00 99.3 71 16 104/62 97 10/06/16 16:00 110 10/06/16 16:00 97 Room Air 4.00 10/06/16 14:00 113 10/06/16 12:00 98.5 110 20 107/92 92 10/06/16 12:00 110 10/06/16 10:00 118 I/O 10/06/16 10/06/16 10/06/16 10/07/16 10/07/16 10/07/16 07:00 15:00 23:00 07:00 15:00 23:00 Intake Total 880 ml 1234 ml 1171 ml 525 ml Output Total 1050 ml 300 ml 250 ml 400 ml Balance -170 ml 934 ml 921 ml 125 ml Intake Oral 60 ml 360 ml 240 ml 250 ml IV Total 820 ml 874 ml 931 ml 275 ml Output Urine Total 1050 ml 300 ml 250 ml 400 ml # Voids 1 # Bowel Movements 1 1 3 3 Result Diagram: 10/06/16 0504 10/06/16 0504 Objective Remarks GENERAL: A&Ox3, no distress, no delirium or confusion SKIN: Warm and dry. HEAD: Normocephalic. EYES: No scleral icterus. No injection or drainage. NECK: Supple, trachea midline. No JVD or lymphadenopathy. CARDIOVASCULAR: Regular rate and rhythm without murmurs, gallops, or rubs. RESPIRATORY: Breath sounds equal bilaterally. No accessory muscle use. GASTROINTESTINAL: Abdomen soft, non-tender, nondistended. MUSCULOSKELETAL: No cyanosis, or edema. BACK: Nontender without obvious deformity. No CVA tenderness. NEURO: Chronic Deficits with hemiplegia, no acute focal neuro deficits. A/P Problem List: (1) Alcohol abuse with alcohol-induced mood disorder ICD Code: F10.14 (2) Tremor of both hands ICD Code: R25.1 (3) Alcohol withdrawal ICD Code: F10.239 (4) Encephalopathy ICD Code: G93.40 (5) Thrombocytopenia ICD Code: D69.6 (6) Seizure ICD Code: R56.9 (7) Head injury ICD Code: S09.90XA (8) Altered mental status ICD Code: R41.82 Assessment and Plan Assessment and Plan: 51 year old male admitted with a new onset acute seizure and confussion. Delirium Tremens Acute Seizure (new) Alcohol Withdraw Seizure Patient denies ETOH abuse He does not feel he is had seizures related to alcohol He refuses further work up Seizure precautions Hypotension off pressors now Transfer out of ICU Acute Delerium Toxic Encephalopathy May be DT related Could be seizure related Can not fully evaluate without an MRI, which the patient is refusing Thrombocytopenia Follow CBC Transaminitis Follow LFTs Nicotine Dependence Quitting smoking recommended Deconditioning PT and OT DVT Prophylaxis Heparin SCDs Discharge Planning Patient is not medically cleared for discharge, will need further work up with MRI of brain first Patient is planning to leave [facility], despite counseling to stay Jony Hays MD Oct 07, 2016 10:01
[2016-10-07] MEDS ORDERED: LORazepam 2 MG/ML VIAL IV PUSH PRN (10:15)
--- NOTE | 2016-10-07 11:46 | PD.AMA ---
Against Medical Advice Note Diagnosis: (1) Seizure Discharge Disposition: Against Medical Advice Pt Condition on Discharge: Good AMA Statement Patient Rahat Lopez has decided to leave the hospital against medical advice. This patient has the capacity to refuse care and understands the risks of leaving, including permanent disability and/or , and has had an opportunity to ask questions about his condition. The patient has been informed that he may return for care at any time, and follow up has been arranged/ advised. Jony Hays MD Oct 07, 2016 11:46 am
[2016-10-08] MEDS ORDERED: THIAMINE HCL 100 MG TAB PO SCH (09:00)
[2016-10-08] MEDS ORDERED: FOLIC ACID 1 MG TAB PO SCH (09:00)
[2016-10-09] MEDS ORDERED: THIAMINE HCL 100 MG TAB PO SCH (09:00)
== END 2016-10-07 11:45 | disposition left against medical advice (07) | DRG 100 ==
LOC: NEPC 13:59 → NEDA 18:21 → N06A 21:57 → N03A 10-03 08:12
PROVIDERS: ADMIT Hospitalist; ATTEND Hospitalist
DX: R56.9 Unspecified convulsions (principal); G92 Toxic encephalopathy; F10.231 Alcohol dependence with withdrawal delirium; D69.6 Thrombocytopenia, unspecified; E86.0 Dehydration; F10.24 Alcohol dependence with alcohol-induced mood disorder; R25.1 Tremor, unspecified; I10 Essential (primary) hypertension; R00.0 Tachycardia, unspecified; H55.00 Unspecified nystagmus; S00.03XA Contusion of scalp, initial encounter; F17.210 Nicotine dependence, cigarettes, uncomplicated; W19.XXXA Unspecified fall, initial encounter; Y92.480 Sidewalk as the place of occurrence of the external cause; Z86.73 Personal history of transient ischemic attack (TIA), and cerebral infarction without residual deficits
CPT/HCPCS: 70450; 80048; 80053; 80307; 81001; 82550; 82552; 83735; 84100; 85025; 87641; 93005; 95819; 96374; 96376; J1630; J1644; J2060; J2250; J3411; J3475; J3480; J7030; J7050